=== PATIENT | male | born 1950 | race Caucasian/White ===

== ENCOUNTER → 2023-03-27 08:14 | Outpatient (REF) | payer MEDICARE, OTHER, SELFPAY ==
[2023-03-27 10:43] LABS: ALT (SGPT) 32 U/L (0-50); AST (SGOT) 26 U/L (17-59); Albumin 4.5 g/dl (3.5-5.0); Alkaline Phosphatase 67 U/L (38-126); Blood Urea Nitrogen 13 mg/dl (9-20); Calcium 9.2 mg/dl (8.4-10.2); Carbon Dioxide 31 mmol/L (22-30); Chloride 101 mmol/L (98-107); Glucose 99 mg/dl (70-99); HDL Cholesterol 64 mg/dl; LDL Cholesterol, Calculated 90 mg/dl; Potassium 4.1 mmol/L (3.5-5.1); Sodium 135 mmol/L (135-145); Total Bilirubin 0.9 mg/dl (0.2-1.3); Total Cholesterol 171 mg/dl (50-199); Total Protein 7.4 g/dl (6.3-8.2); Triglyceride 86 mg/dl (10-149); Very Low Density Lipoprotein 17 mg/dl (0-30); eGFR > 60.00
== END ==
LOC: HWLAB 08:14
PROVIDERS: ATTENDING PHYSICIAN Family Medicine
DX: E78.2 Mixed hyperlipidemia (principal)
CPT/HCPCS: 36415; 80053; 80061

== ENCOUNTER → 2023-04-03 08:20 | Outpatient (REF) | payer MEDICARE, OTHER, SELFPAY | LOC: DHCBC HW 08:20 | PROVIDERS: ATTENDING PHYSICIAN Internal Medicine Cardiovascular Disease; FAMILY PHYSICIAN Family Medicine | DX: I35.0 Nonrheumatic aortic (valve) stenosis (principal) | CPT/HCPCS: 93306 ==

== ENCOUNTER → 2023-12-10 11:15 | Outpatient (REF) | payer MEDICARE, OTHER, SELFPAY | LOC: HWRCS 11:15 | PROVIDERS: ATTENDING PHYSICIAN Nurse Practitioner; FAMILY PHYSICIAN Family Medicine | DX: I35.0 Nonrheumatic aortic (valve) stenosis (principal) | CPT/HCPCS: 93306 ==

== ENCOUNTER → 2023-12-13 09:59 | Outpatient (REF) | payer MEDICARE, OTHER, SELFPAY ==
[2023-12-13 12:18] LABS: % Basophils 1.1 % (0-2); % Eosinophils 2.2 % (0-6); % Immature Granulocytes 0.3 % (0-0.5); % Lymphocytes 30.1 % (20.5-51.1); % Monocytes 13.8 % (1.7-9.3); % Neutrophils 52.5 % (42.2-75.2); Absolute Basophils 0.1 10^3/uL (0-0.2); Absolute Eosinophils 0.2 10^3/uL (0-0.7); Absolute Lymphocytes 2.2 10^3/uL (1.2-3.4); Absolute Neutrophils 3.8 10^3/uL (1.4-6.5); Hematocrit 38.7 % (39.0-52.0); Hemoglobin 13.7 g/dL (13.0-18.0); Mean Corp Hgb Conc. 35.4 g/dL (33.0-37.0); Mean Corpuscular Hgb 32.2 pg (27.0-31.0); Mean Corpuscular Volume 90.8 fL (80.0-94.0); Mean Platelet Volume 10.3 fL (7.4-10.4); Nucleated Red Blood Cells % 0 % (-); Platelet Count 266 10^3/uL (130-400); Red Blood Cell Count 4.26 10^6/uL (4.70-6.10); Red Cell Dist. Width 12.2 % (11.5-14.5); White Blood Cell Count 7.3 10^3/uL (4.8-10.8)
[2023-12-13 12:29] LABS: ALT (SGPT) 31 U/L (0-50); AST (SGOT) 26 U/L (17-59); Albumin 4.8 g/dl (3.5-5.0); Alkaline Phosphatase 48 U/L (38-126); Blood Urea Nitrogen 15 mg/dl (9-20); Calcium 9.3 mg/dl (8.4-10.2); Carbon Dioxide 25 mmol/L (22-30); Chloride 96 mmol/L (98-107); Glucose 94 mg/dl (70-99); Potassium 4.4 mmol/L (3.5-5.1); Sodium 134 mmol/L (135-145); Total Bilirubin 0.9 mg/dl (0.2-1.3); Total Protein 7.5 g/dl (6.3-8.2); eGFR > 60.00
== END ==
LOC: HWLAB 09:59
PROVIDERS: ATTENDING PHYSICIAN Student in an Organized Health Care Education/Training Program; FAMILY PHYSICIAN Family Medicine
DX: I35.0 Nonrheumatic aortic (valve) stenosis (principal)
CPT/HCPCS: 36415; 80053; 85025

== ENCOUNTER 2023-12-23 06:29 | Day surgery (SDC) | payer MEDICARE, OTHER, SELFPAY ==
[2023-12-23] VITALS (19 sets, daily range): BP systolic 104–161; BP diastolic 60–82; BMI 25.5
--- NOTE | 2023-12-23 08:42 | ITS.CL.CATH ---
Anesthesiology Physician Assistant - Catheterization
Cardiac Catheterization
Procedure Report:
CARDIAC CATHETERIZATION REPORT
Date of Procedure: 12/23/2023
Referring: Leo Raman M.D.
Indication: Severe aortic valve stenosis.
PROCEDURE:
1. Right heart catheterization.
2. Coronary angiography.
3. Successful IFR of the mid LAD.
ACCESS:
6 Slovenian right radial artery.
5 Slovenian right antecubital vein.
CATHETERS:
1. 5 Slovenian balloon wedge.
2. 5 Slovenian JR4.
3. 5 Slovenian JL 3.5.
4. 6 Slovenian EBU 3.5 guiding catheter.
HEMODYNAMIC DATA
Weight (kg): 67.3
AO (s/d/x mmHg): 112/65/85
LV (s/x mmHg): Not obtained.
PCWP (a/v/x mmHg):
PA (s/d/x mmHg):
RV (s/x mmHg): 23/6
RA (a/v/x mmHg):
SVC SvO2 (%): 73.9
PA SvO2 (%): 77.7
SaO2 (%): 95.8
Hbg (g/dL): 14.1
CO (L/min): 5.95
CI (L/min/m2): 3.45
TPG (mmHg): 3
PVR (Butcher Units): 0.5
SVR (dynes*seconds*cm^-5): 1049
AVO2 Diff (Volume %): 4.08
AV gradient (x, mmHg): Not obtained.
AV area (cm2): Not obtained.
LEFT VENTRICULOGRAPHY: Not performed.
CORONARY ANGIOGRAPHY
Dominance: Left.
Left Main: Large size, bifurcating vessel. There is no coronary artery disease.
LAD: Large size vessel giving rise to 1 significant diagonal. The vessel is densely calcified in its proximal and midportion. There is a 70% lesion in the mid LAD.
Ramus: Congenitally absent.
Circumflex: Large size, dominant vessel giving rise to 1 obtuse marginal. The obtuse marginal subsequently bifurcates into 2 daughter branches supplying the entire lateral and inferolateral wall. There is a 50% lesion in the midportion of the
lower branch of OM1. There is a 70% lesion in the proximal portion of the LPDA.
RCA: Small size, nondominant vessel.
INTERVENTIONS
1. Successful IFR of the 70% mid LAD lesion, demonstrating occlusive disease (IFR = 0.78).
Narrative:
The decision was made to perform physiologic testing. The diagnostic catheter was removed over a wire and exchanged for a(n) 6 Slovenian EBU 3.5 guiding catheter. The guiding catheter was advanced into the ascending aorta and seated in the left main
coronary artery. Additional heparin was given to obtain an ACT greater than 250 seconds. An iFR wire was zeroed outside of the body, then inserted into the guiding sheath. The wire was advanced and the transducer was normalized just outside of the
guiding catheter tip. The wire was advanced into the distal LAD, beyond the 70% mid LAD lesion. Three iFR measurements were taken. The lesion was determined to be occlusive (0.78).
Closure Device: Vascular band for the right radial artery, manual pressure for the right antecubital vein.
Radiation dose (mGy): 312.32
DAP (cm2.Gy): 25.2391
Fluoroscopy time (minutes): 5.3
Sedation time (minutes): 18
CONCLUSIONS:
1. Left dominant circulation with a 70% lesion in the proximal portion of the LPDA, a 50% lesion in the midportion of the lower branch of OM1 and an occlusive 70% lesion in the mid LAD (IFR = 0.78).
2. Severe/critical aortic valve stenosis by echocardiography (mean gradient = 71 mmHg).
3. Normal filling pressures (PCWP = 15 mmHg at 67.3 kg).
RECOMMENDATIONS:
1. Expectant management after cardiac catheterization via right radial/antecubital approach.
2. Limited weight bearing on the right wrist for one week.
3. Aggressive primary prevention with increase of atorvastatin to 40 mg daily. Goal LDL <55.
4. Referral to CT surgery for consideration of concomitant bypass and surgical aortic valve replacement versus PCI and TAVR.
Copy to: Leo Raman M.D.
Matt Thomas DO, FACC, FACP
[2023-12-23] MEDS: NSS 1000 IV (09:08)
--- NOTE | 2023-12-23 09:23 | PTCARENOTE ---
Dr Thomas at pt bedside speaking to pt and pt's .
--- NOTE | 2023-12-23 10:40 | PTCARENOTE ---
Raffi MUKHERJEE at pt bedside speaking to pt and pt's .
[2023-12-23 15:38] LABS: ACT-LR - POC > 397 Seconds (116-155)
== END 2023-12-23 13:08 | disposition home or self-care (01) ==
LOC: CATH 06:29
PROVIDERS: ATTENDING PHYSICIAN Internal Medicine Cardiovascular Disease; CONSULT PHYSICIAN Thoracic Surgery (Cardiothoracic Vascular Surgery); FAMILY PHYSICIAN Family Medicine; OTHER PHYSICIAN Student in an Organized Health Care Education/Training Program
DX: I35.0 Nonrheumatic aortic (valve) stenosis (principal); I25.10 Atherosclerotic heart disease of native coronary artery without angina pectoris; Z79.82 Long term (current) use of aspirin; Z79.899 Other long term (current) drug therapy
CPT/HCPCS: 93799; 85347; 93456; C1769; C1894; Q9967

== ENCOUNTER → 2024-01-07 09:18 | Outpatient (REF) | payer MEDICARE, OTHER, SELFPAY | LOC: RAD 09:18 | PROVIDERS: ATTENDING PHYSICIAN Thoracic Surgery (Cardiothoracic Vascular Surgery); FAMILY PHYSICIAN Family Medicine | DX: I25.10 Atherosclerotic heart disease of native coronary artery without angina pectoris (principal); I35.0 Nonrheumatic aortic (valve) stenosis; Z01.818 Encounter for other preprocedural examination | CPT/HCPCS: 75572; Q9967 ==

== ENCOUNTER 2024-01-22 04:49 | Inpatient (IN) | payer MEDICARE, OTHER, SELFPAY ==
[2024-01-06 08:28] VITALS: BMI 26.0
[2024-01-06 09:05] LABS: % Basophils 0.3 % (0-2); % Immature Granulocytes 0.3 % (0-0.5); % Lymphocytes 16.1 % (20.5-51.1); % Monocytes 4.7 % (1.7-9.3); % Neutrophils 78.6 % (42.2-75.2); Absolute Lymphocytes 1.9 10^3/uL (1.2-3.4); Absolute Monocytes 0.6 10^3/uL (0.1-0.6); Absolute Neutrophils 9.3 10^3/uL (1.4-6.5); Hemoglobin 14.5 g/dL (13.0-18.0); Mean Corp Hgb Conc. 34.5 g/dL (33.0-37.0); Mean Corpuscular Hgb 32.4 pg (27.0-31.0); Mean Corpuscular Volume 93.8 fL (80.0-94.0); Mean Platelet Volume 10.4 fL (7.4-10.4); Nucleated Red Blood Cells % 0 % (-); Platelet Count 273 10^3/uL (130-400); Red Blood Cell Count 4.48 10^6/uL (4.70-6.10); Red Cell Dist. Width 11.9 % (11.5-14.5); White Blood Cell Count 11.8 10^3/uL (4.8-10.8)
[2024-01-06 09:15] LABS: INR 0.92; PT 12.7 Sec (11.4-14.6)
[2024-01-06 09:16] LABS: APTT 29.9 Sec (23.4-35.0)
[2024-01-06 09:16] LABS: Urine Albumin Negative (Neg - Trace); Urine Bilirubin Negative (Negative); Urine Glucose Negative (Negative); Urine Ketone Negative (Negative); Urine Leukocyte Negative (Negative); Urine Nitrite Negative (Negative); Urine Occult Blood Negative (Negative); Urine Specific Gravity 1.015 (<1.030); Urine Urobilinogen Negative (Neg - 1+)
[2024-01-06 09:17] LABS: Urine Character Clear (Clear); Urine Color Yellow
--- NOTE | 2024-01-06 09:40 | CM ---
Met with and Mrs. Hoang in [facility]. He states prior to admission he resides with his spouse in an in-law suite attached to their sons home. He states he has one step to enter. He states prior to admission he was independent with ambulation and
adls. He states he carrasco not have any DME in the home. He states he has a prescription plan ans uses [facility]. His spouse states she will be home to assist in his care at home if needed. The discharge plan is to return home with his spouse
and a home visit by the Transitional Care Nurse when medically stable.
We reviewed pre-op and post-op routines. We reviewed the shower instructions. He has the soap, written instructions and the Cardiothoracic Surgery Educational Booklet. We also reviewed restrictions including sternal precautions and driving
restrictions. We discussed a home visit by the Transitional Care Nurse. He is agreeable to a home visit. The plan is for CABG/AVR on Monday, January 22, 2024.
[2024-01-06 10:04] LABS: ALT (SGPT) 41 U/L (0-50); AST (SGOT) 28 U/L (17-59); Albumin 4.8 g/dl (3.5-5.0); Alkaline Phosphatase 67 U/L (38-126); Blood Urea Nitrogen 15 mg/dl (9-20); Calcium 9.3 mg/dl (8.4-10.2); Carbon Dioxide 28 mmol/L (22-30); Chloride 95 mmol/L (98-107); Direct Bilirubin 0.2 mg/dl (0.0-0.4); Estimated Creatinine Clearance 95 ml/min; Glucose 108 mg/dl (70-99); Potassium 4.3 mmol/L (3.5-5.1); Sodium 138 mmol/L (135-145); Total Bilirubin 0.7 mg/dl (0.2-1.3); Total Protein 7.9 g/dl (6.3-8.2); eGFR > 60.00
[2024-01-06 11:17] LABS: Glycohemoglobin (HgbA1c) 5.3 % (4.0-5.6)
[2024-01-22] VITALS (11 sets, daily range): BP systolic 92–169; BP diastolic 60–83; BMI 25.0
[2024-01-22] MEDS: BACTROBAN 2% OINTMENT 1 APPLIC NASAL ×2 (05:22→19:27)
[2024-01-22] MEDS: PROTONIX 40 MG PO (05:22)
[2024-01-22] MEDS: LOPRESSOR 25 MG PO (05:22)
[2024-01-22] MEDS: MAGNESIUM OXIDE 500 MG PO (05:22)
--- NOTE | 2024-01-22 05:40 | PTCARENOTE ---
pt admitted into room 2263. VS and weight obtained. pt confirms 2 showers @ home and NPO since midnight. admission questions and med rec completed. clip prep and CHG cloths done. pre-op meds given. and son at bedside.
--- NOTE | 2024-01-22 06:07 | W.CVOR.SURPR ---
CVOR Surgeon Immed Pre Op
-
I have examined this patient prior to performance of the scheduled procedure.
The patient's condition is unchanged from the time of the dictated/written History and
Physical and the patient is able to undergo the scheduled procedure.
[2024-01-22 07:10] LABS: ACT+ - POC 96 Seconds (82-134)
[2024-01-22 07:46] LABS: Urine Albumin Negative (Neg - Trace); Urine Bilirubin Negative (Negative); Urine Character Clear (Clear); Urine Color Yellow; Urine Glucose Negative (Negative); Urine Ketone Negative (Negative); Urine Leukocyte Negative (Negative); Urine Nitrite Negative (Negative); Urine Occult Blood Trace (Negative); Urine Specific Gravity 1.005 (<1.030); Urine Urobilinogen Negative (Neg - 1+)
[2024-01-22 08:44] LABS: Urine Red Blood Cell 0-2 /HPF (0-2)
[2024-01-22 09:14] LABS: ACT+ - POC 649 Seconds (82-134)
[2024-01-22 09:42] LABS: B.E. - POC -0.2 mmol/L; Glucose - POC 130 mg/dl (70-99); HCO3 - POC 25 mmol/L (21-28); Hematocrit - POC 36 % PCV (42-52); Hemodilution- POC Yes; Hemoglobin Calculated - POC 12.2; Ionized Calcium - POC 1.13 mmol/L (1.15-1.33); O2 Saturation %Calculated-POC 99.9 % (94-98); PCO2 - POC 41 mmHg (35-48); PO2 - POC 328 mmHg (83-108); POC Comment PRE; Potassium - POC 3.5 mmol/L (3.5-5.1); Sodium - POC 138 mmol/L (136-145); Specimen Type - POC Arterial; pH - POC 7.39 (7.35-7.45)
[2024-01-22 09:59] LABS: ACT+ - POC 889 Seconds (82-134)
[2024-01-22 10:16] LABS: B.E. - POC 3.1 mmol/L; Glucose - POC 85 mg/dl (70-99); HCO3 - POC 28 mmol/L (21-28); Hematocrit - POC 26 % PCV (42-52); Hemodilution- POC Yes; Hemoglobin Calculated - POC 8.9; Ionized Calcium - POC 1.01 mmol/L (1.15-1.33); PCO2 - POC 43 mmHg (35-48); PO2 - POC 391 mmHg (83-108); POC Comment CPB; Potassium - POC 3.7 mmol/L (3.5-5.1); Sodium - POC 137 mmol/L (136-145); Specimen Type - POC Arterial; pH - POC 7.42 (7.35-7.45)
[2024-01-22 10:27] LABS: ACT+ - POC 619 Seconds (82-134)
[2024-01-22 10:41] LABS: B.E. - POC 2.9 mmol/L; Glucose - POC 107 mg/dl (70-99); HCO3 - POC 26 mmol/L (21-28); Hematocrit - POC 31 % PCV (42-52); Hemodilution- POC Yes; Hemoglobin Calculated - POC 10.4; Ionized Calcium - POC 1.02 mmol/L (1.15-1.33); O2 Saturation %Calculated-POC 99.8 % (94-98); PCO2 - POC 34 mmHg (35-48); PO2 - POC 224 mmHg (83-108); POC Comment CPB; Potassium - POC 3.7 mmol/L (3.5-5.1); Sodium - POC 138 mmol/L (136-145); Specimen Type - POC Arterial; pH - POC 7.49 (7.35-7.45)
[2024-01-22 10:55] LABS: ACT+ - POC 701 Seconds (82-134)
[2024-01-22 11:13] LABS: B.E. - POC 1.1 mmol/L; Glucose - POC 113 mg/dl (70-99); HCO3 - POC 25 mmol/L (21-28); Hematocrit - POC 28 % PCV (42-52); Hemodilution- POC Yes; Hemoglobin Calculated - POC 9.4; Ionized Calcium - POC 0.94 mmol/L (1.15-1.33); O2 Saturation %Calculated-POC 99.9 % (94-98); PCO2 - POC 36 mmHg (35-48); PO2 - POC 282 mmHg (83-108); POC Comment CPB; Potassium - POC 5.4 mmol/L (3.5-5.1); Sodium - POC 137 mmol/L (136-145); Specimen Type - POC Arterial; pH - POC 7.45 (7.35-7.45)
[2024-01-22 11:23] LABS: ACT+ - POC 502 Seconds (82-134)
[2024-01-22 11:38] LABS: B.E. - POC 1.6 mmol/L; Glucose - POC 140 mg/dl (70-99); HCO3 - POC 25 mmol/L (21-28); Hematocrit - POC 29 % PCV (42-52); Hemodilution- POC Yes; Ionized Calcium - POC 1.02 mmol/L (1.15-1.33); O2 Saturation %Calculated-POC 99.9 % (94-98); PCO2 - POC 35 mmHg (35-48); PO2 - POC 265 mmHg (83-108); POC Comment CPB; Potassium - POC 3.7 mmol/L (3.5-5.1); Sodium - POC 138 mmol/L (136-145); Specimen Type - POC Arterial; pH - POC 7.46 (7.35-7.45)
[2024-01-22 11:45] LABS: ACT+ - POC 455 Seconds (82-134)
[2024-01-22 11:57] LABS: B.E. - POC 0.7 mmol/L; Glucose - POC 151 mg/dl (70-99); HCO3 - POC 25 mmol/L (21-28); Hematocrit - POC 28 % PCV (42-52); Hemodilution- POC Yes; Hemoglobin Calculated - POC 9.6; Ionized Calcium - POC 1.02 mmol/L (1.15-1.33); O2 Saturation %Calculated-POC 99.8 % (94-98); PCO2 - POC 36 mmHg (35-48); PO2 - POC 203 mmHg (83-108); POC Comment CPB; Potassium - POC 3.6 mmol/L (3.5-5.1); Sodium - POC 138 mmol/L (136-145); Specimen Type - POC Arterial; pH - POC 7.45 (7.35-7.45)
[2024-01-22 12:50] LABS: B.E. - POC -1.5 mmol/L; Glucose - POC 124 mg/dl (70-99); HCO3 - POC 23 mmol/L (21-28); Hematocrit - POC 28 % PCV (42-52); Hemodilution- POC Yes; Hemoglobin Calculated - POC 9.5; Ionized Calcium - POC 1.02 mmol/L (1.15-1.33); PCO2 - POC 38 mmHg (35-48); PO2 - POC 372 mmHg (83-108); POC Comment WARM; Potassium - POC 3.4 mmol/L (3.5-5.1); Sodium - POC 139 mmol/L (136-145); Specimen Type - POC Arterial
[2024-01-22 12:55] LABS: ACT+ - POC 109 Seconds (82-134)
[2024-01-22 13:18] LABS: ACT+ - POC 140 Seconds (82-134)
[2024-01-22 13:30] LABS: ACT+ - POC 129 Seconds (82-134)
--- NOTE | 2024-01-22 13:47 | W.IMMPOSTOP ---
Addendum entered and electronically signed by Celestino Espinoza MD 01/22/24 15:01:
Dictated
Original Note:
Surgical Immed Post Op Note
-
CARDIAC SURGERY OPERATIVE NOTE:
Preoperative Dx:
Severe aortic stenosis (P/M: 127/76, CHRIS 0.9)
MVCAD (70% mid LAD, 50% hazy mid OM1 inferior branch, 70% prox LPDA)
Postoperative Dx:
Same
Procedures:
1) Median sternotomy
2) Takedown of SCAR (narrow pedicle)
3) Endoscopic harvest/prep of RLE GSV
4) CABG x 3 (SCAR to LAD, GSV to OM1 inferior branch), GSV to LPDA)
5) AVR (#25mm Inspiris)
Surgeon:
Celestino Espinoza M.D.
Assistants:
Adrienne Gallegos PKarlaA.-CKarla; instructional assistant
Parvez JonesAKarla-Pramod; endoscopic harvest/prep of RLE GSV
Anesthesia:
Tung Husain M.D.
Perfusion:
Pramod DuronCKarlaP.; XC: 168min, CPB: 187min
Findings:
SCAR was very healthy appearing vessel w/ estimated luminal diameter 2.5mm, very brisk blood flow
GSV was healthy appearing conduit w/ ELD 3.5mm
LAD was visible on the epicardial surface, healthy lauren at distal midpoint anastomosis; ELD 2.5mm
OM1 (inferior branch) was visible on the epicardial surface, healthy lauren at anastomosis; ELD 3.5mm
LPDA was visible on the epicardial surface, healthy lauren at anastomosis; ELD 3.0mm
AV was trileaflet w/ very heavy calcifications on all leaflets w/ circumferential annular extension (most pronounced along RCC). There was no significant subvalvular calcifications. Good LM and RM coronary heights.
Excellent flow in all grafts on transit-time U/S flow probe assessment
Minor post-CPB coagulopathy w/ incomplete correction of ACT w/ protamine and paradoxical response w/ additional protamine. Significant improvement w/ topical hemostatic agents and 1pk PLTs
SANDRA: LVEF 65% w/o RWMA, significant LVH, RV normal. Trace MR, mild TR. Well-seated AVR w/o AI or PVL. P/M 22/12 at CI of 2.8. Mild ascending aortic dilation to 3.7mm
Baseline rhythm was NSR in 40s under GA, completion rhythm is continued NSR in 40s - currently V-pacing at 80bpm for improved hemodynamics
Complications:
None
Transfusions:
1pk PLTs
Implants:
[employer], INSPIRIS RESILIA, 25mm, Model 73833Y, SN [id number]
Epicardial V-wires x 2
CT x 4 (B/L pleural, inferior mediastinal, superior mediastinal)
Sternal wires x 8
Condition:
80 V-paced (isoelectric NSR in 40s under); 97/52. 31/21. CVP 12. CO/CI: 3.4/2.0
GTTS: levophed 12, precedex 0.5, insulin OFF
Stable/guarded to CVICU
[2024-01-22 13:48] LABS: B.E. - POC 1.6 mmol/L; Glucose - POC 84 mg/dl (70-99); HCO3 - POC 26 mmol/L (21-28); Hematocrit - POC 28 % PCV (42-52); Hemodilution- POC Yes; Hemoglobin Calculated - POC 9.5; PCO2 - POC 41 mmHg (35-48); PO2 - POC 480 mmHg (83-108); POC Comment POST; Sodium - POC 142 mmol/L (136-145); Specimen Type - POC Arterial; pH - POC 7.41 (7.35-7.45)
--- NOTE | 2024-01-22 14:19 | CON.INTV ---
Consultation
Consultation Request
Date/Time Consultation Requested: 01/22/2024
Date/Time Consultation Performed: 01/22/2024
Requesting Provider: Dr. Espinoza
Performing Provider: Dr. Mitch Skinner
Reason for Consultation: Status post coronary artery bypass/AVR
Medical History
-
History of Present Illness:
73-year-old man with history of aortic valve stenosis, coronary artery disease with multivessel coronary involvement,. Electively admitted 01/22/2024 for revascularization and aortic valve replacement. Surgery underwent by Dr. Espinoza without
significant complications.
Patient currently in the critical care unit, intubated on mechanical ventilation.
Chest tube in place without significant output.
Appears comfortable on current mechanical ventilation settings
Past Medical History
Past Medical History: Other (See assessment and plan)
Social History
Tobacco: Non-smoker (Never smoker)
Alcohol: Occasional (4 to 6 glasses a week of wine)
Drug: None
Living: With Family
Employment: Employed (Part-time [employer])
Family History
Family History: Unable to Obtain
Allergies / Home Medications
Allergies
Allergy/AdvReac Type Severity Reaction Status Date / Time
No Known Allergies Allergy Verified 01/03/24 09:51
Home Medications
�Medication �Instructions �Recorded �Confirmed �Last Taken �Type
amlodipine 10 mg tablet 10 mg PO DAILY Blood pressure 07/18/21 01/22/24 01/19/24 08:00 History
losartan 50 mg tablet 50 mg PO DAILY #30 tabs 07/20/21 01/22/24 01/19/24 08:00 Rx
pantoprazole 40 mg tablet,delayed 40 mg PO DAILY #30 tabs 07/20/21 01/22/24 01/21/24 08:00 Rx
release
aspirin 81 mg tablet,delayed 81 mg PO DAILY 12/23/23 01/22/24 01/21/24 08:00 History
release
atorvastatin 40 mg tablet 40 mg PO DAILY #90 tabs 12/23/23 01/22/24 01/21/24 08:00 Rx
fiber 1 tab PO HS 12/23/23 01/22/24 01/14/24 08:00 History
vitamin B comp with C no.4 150 mg 1 tab PO DAILY 12/23/23 01/22/24 01/14/24 08:00 History
tablet
acetaminophen 325 mg capsule 650 mg PO Q6H PRN pain 01/03/24 01/03/24 Unknown History
amoxicillin 500 mg capsule 500 mg PO TID 01/03/24 01/22/24 01/16/24 08:00 History
methylprednisolone 4 mg tablet 4 mg PO DAILY 01/03/24 01/22/24 01/16/24 08:00 History
Review of Systems
-
Unable to Obtain full review of systems at this time due to: Patient Intubation
Vitals / Labs / Diagnostic Testing
Vital Signs
Temp Pulse Resp BP Pulse Ox
97.7 F 70 18 162/83 99
01/22/24 05:08 01/22/24 05:22 01/22/24 05:08 01/22/24 05:22 01/22/24 05:08
Diagnostic Testing:
Physical Exam
-
HEENT: Normocephalic
Cardiovascular: S1/S2
Respiratory: Clear, Non-Labored Respirations and Other (Chest tube in place: No air leak or excessive drainage)
GI: Soft and Non Distended
Neurology: Other (Sedated, mechanical ventilation)
Skin: Warm
General: Comfortable
Assessment
-
73-year-old man with history of aortic stenosis, coronary artery disease with multiple vessel involvement. Admitted for aortic valve replacement and coronary artery bypass. Consulted for postoperative critical care management.
Status post coronary artery bypass/aortic valve replacement 01/22/2024-Dr. Espinoza
Postoperative mechanical ventilation
Postoperative anemia
Conditions present prior admission:
Hypertension
Severe aortic stenosis
History of bleeding ulcer 2016
Assessment and plan:
His doing well postop-currently on mechanical ventilation and appears comfortable.
ABG reviewed:Adequate oxygenation and ventilation.
Continue SIMV mode with no change
Spontaneous breathing trial per protocol once sedation wears off.
Postoperative blood loss Anemia noted-getting transfused
Follow chest tube output. Currently not excessive.
Follow H&H serially
Hemodynamics -currently on Levophed.
Normal renal function
Adequate urinary output
PA catheter and arterial line in place will follow hemodynamics and adjust vasopressors as necessary
Chest tube with no excessive drainage-no air leak.
Chest x-ray reviewed: With no pneumothorax or fluid collections.
Remain nothing by mouth
Head of the bed elevation
Glycemic control per protocol
DVT prophylaxis when safe from the surgical perspective.
Critical care statement: A total of 32 minutes of critical care time was provided for this patient today. This includes management of unstable vital signs, evaluation of the patient at bedside, reviewing the patient's pertinent medical records
including ventilator settings, arterial blood gases, radiographs, microbiology, laboratory evaluations and discussion with primary team, critical care nursing, and respiratory therapy.
[2024-01-22 14:23] LABS: Glucose - Point of Care 112 mg/dl (70-99)
[2024-01-22] MEDS: LR 250 ML IV ×3 (14:28→21:00)
[2024-01-22] MEDS: NSS 500 IV (14:29)
[2024-01-22 14:36] LABS: Hematocrit 22.7 % (39.0-52.0); Hemoglobin 7.9 g/dL (13.0-18.0); Platelet Count 166 10^3/uL (130-400)
[2024-01-22 14:37] LABS: Mixed Venous O2 Saturation 58.3 %
[2024-01-22 14:39] LABS: B.E. -0.8 mmol/L; HCO3 24.3 mmol/L (21-28); Ionized Calcium 1.13 mMOL/L (1.15-1.33); O2 Saturation % 99.8 % (94-98); PCO2 41 mmHg (35-48); PO2 185 mmHg (83-108); Potassium 3.2 mMOL/L (3.5-5.1); Sodium 136 mMOL/L (136-145); pH 7.38 (7.35-7.45)
[2024-01-22 14:50] LABS: INR 1.58; PT 19.4 Sec (11.4-14.6)
--- NOTE | 2024-01-22 14:50 | PTCARENOTE ---
Pt out from CVOR ~1415. Pt to room 2263. Pt intubated and sedated. Precedex infusing upon arrival. Pt 100% v-paced on the tele monitor. HR 80. Temporary epicardial V-wire set to VVI 12/01/15. Palpable pulses throughout. No edema. BPs
100s-110s/50-60s. Levo infusing as ordered. CVP ~10. PAP 30s/teens. CO: 3.41. CI: 1.99. ETT #8.0, 23 cm @ right lip. See worklist for vent settings. POX 100%. Mouth care completed. Lung sounds audible. Mediastinal CTx2 and R/L pleural CT to -20
suction, no airleaks or tidaling noted at this time. CT output as documented in the worklist. Abdomen soft. Hypoactive BS. Davey catheter C/D/I and draining clear/yellow urine. Stat lock applied. Davey care completed. Left radial a-line C/D/I. Right
IJ cordis w/ swan @47 cm C/D/I. All lines leveled, zeroed, and flushed. 250 LR bolus per CTPA for low BP. Glycemic protocol followed. Labs drawn and sent. Per CTPA okay to wait on EKG because pt is 100% v-paced at this time. 1 unit PRBCs initiated.
See worklist for full nursing assessment and interventions.
[2024-01-22 14:51] LABS: APTT 40.6 Sec (23.4-35.0)
[2024-01-22] MEDS: CALCIUM CHLORIDE 10% SYRINGE 500 MG IV (14:54)
[2024-01-22] MEDS: KCL 50 IV ×2 (14:55→16:29)
[2024-01-22] MEDS: LIPITOR PO (14:57)
[2024-01-22] MEDS: ANCEF 10 IV ×2 (15:03)
[2024-01-22] MEDS: TYLENOL PO ×2 (15:04→21:08)
[2024-01-22 15:06] LABS: Blood Urea Nitrogen 20 mg/dl (9-20); Estimated Creatinine Clearance 95 ml/min; Glucose 104 mg/dl (70-99)
[2024-01-22 15:34] LABS: Glucose - Point of Care 113 mg/dl (70-99)
--- NOTE | 2024-01-22 15:37 | W.PN.CD ---
Addendum entered and electronically signed by Matt Thomas DO 01/22/24 16:55:
Attestation: I have seen and examined the patient. I can confirm Ms. Boswell's findings and I agree with her assessment and plan as documented.
73-year-old gentleman with coronary artery disease and severe aortic valve stenosis admitted for elective AVR CABG.
The patient underwent CABG x 3 (TOM to LAD, SVG to OM1, SVG to L PDA) and SAVR (#25 Lutz Inspiris bioprosthetic AVR).
On exam, the patient is intubated and sedated. Precedex is being weaned and the patient has been set to CPAP.
He remains on norepinephrine 8 mcg/kg/min. Blood pressure is stable.
Anticipate routine postoperative management.
Wean vent to extubate, likely within the hour.
Wean pressors/inotropes for MAP >65 mmHg, cardiac index >1.8 L/min/m�.
Pain/chest tube management per CT surgery.
We will readd home medications as hemodynamics will allow.
Original Note:
Today's Communication / Plan
-
Follow telemetry
Postoperative management per CT surgery
Impression / Plan
-
73M with hypertension, prior bleeding ulcer (2015), dyslipidemia, coronary artery disease, and aortic stenosis presents for AVR/CABG
Primary medical record specialist: Formerly Dr. Spencer, transitioning to Dr. Alonzo
Coronary artery disease status post CABG x 3 (Whitney�LAD, GSV�OM1 inferior branch, GSV�LPDA)
Severe aortic stenosis status post aortic valve replacement (#25 mm Inspiris)
-Stable on Levophed
-Post SANDRA LVEF 65% without RWMA, no AI or PVL
-EKG with sinus bradycardia nonspecific T wave abnormalities
Postoperative anemia, expected, status post 1 unit PRBC, follow
Hypertension, follow with recovery
Dyslipidemia, continue high intensity statin with goal LDL <70, last LDL 90 (pre-statin)
PUD with prior bleeding ulcer, requiring admission and inpatient transfusions, 10/2015
Physical Exam
Vital Signs/Labs
Vital Signs
Temp Pulse Resp BP Pulse Ox
96.7 F L 80 14 162/83 100
01/22/24 15:00 01/22/24 15:00 01/22/24 15:00 01/22/24 05:22 01/22/24 15:00
01/21/24 01/22/24 01/23/24
06:59 06:59 06:59
Actual Weight 65.9 kg 65.9 kg
01/22/24 14:22
PT 19.4 Sec (11.4-14.6) H 01/22/24 14:22
INR 1.58 01/22/24 14:22
APTT 40.6 Sec (23.4-35.0) H 01/22/24 14:22
Magnesium 3.0 mg/dl (1.6-2.3) H 01/22/24 14:22
Physical Exam
Constitutional: No acute distress and Comfortable
EENT: Anicteric and Moist mucous membranes
Cardiovascular: Rhythm & rate is regular, S1S2 is normal and Murmur/rub/gallop absent
Respiratory: Lungs clear to auscul. and Other (ETT to MV)
GI: Soft, Distention absent, Flat, Non tender and Normal bowel sounds
Other: Skin (warm and dry)
Data Reviewed
-
Date of Service: January 22, 2024
EKG: Report Reviewed by me
Labs: Labs Reviewed by me
Old Records: Reviewed
--- NOTE | 2024-01-22 15:50 | PTCARENOTE ---
CTPA at the bedside. Pacer paused. Pt SR in the 50s. EKG obtained. Pacer tested at beside. New settings VVI 40/3/4.
--- NOTE | 2024-01-22 15:54 | CM ---
pt in OR , cm to follow
[2024-01-22] MEDS: LEVOPHED 250 IV (16:16)
[2024-01-22 16:32] LABS: Glucose - Point of Care 114 mg/dl (70-99)
[2024-01-22] MEDS: NEURONTIN PO (16:39)
[2024-01-22] MEDS: PACERONE PO ×2 (16:39→21:07)
[2024-01-22] MEDS: OFIRMEV 100 IV (16:55)
[2024-01-22 17:06] LABS: Glucose - Point of Care 120 mg/dl (70-99)
[2024-01-22 17:32] LABS: B.E. -1.1 mmol/L; HCO3 23.5 mmol/L (21-28); Ionized Calcium 1.16 mMOL/L (1.15-1.33); O2 Saturation % 99.5 % (94-98); PCO2 38 mmHg (35-48); PO2 161 mmHg (83-108); Potassium 4.9 mMOL/L (3.5-5.1)
--- NOTE | 2024-01-22 17:51 | RESPNOTE ---
17:50 extubated patient to 6L nasal cannula, will monitor.
--- NOTE | 2024-01-22 17:53 | PTCARENOTE ---
Pt placed on CPAP ~1643. ABG drawn and sent around 1715. ABG resulted and per CTPA okay to extubate. Pt extubated to 6 L NC by respiratory. POX 100%. IS 1000. Pt AAOx3. Following commands appropriately. VSS.
[2024-01-22 18:00] LABS: Glucose - Point of Care 82 mg/dl (70-99)
[2024-01-22] MEDS: ANCEF 5 IV (18:05)
[2024-01-22] MEDS: DILAUDID 0.25 MG IV (18:05)
[2024-01-22] MEDS: ZOFRAN 4 MG IV (18:16)
[2024-01-22 18:23] LABS: Hematocrit 26.1 % (39.0-52.0); Hemoglobin 9.4 g/dL (13.0-18.0); Platelet Count 164 10^3/uL (130-400)
[2024-01-22] MEDS: CALCIUM GLUCONATE 100 IV (18:27)
--- NOTE | 2024-01-22 18:39 | PTCARENOTE ---
Pt reassessed. Pt is AAOx3. Sleepy. Pt is SR on the tele monitor. HR 50-60s. Temporary epicardial v-wires intact. Settings unchanged from previous. BP 100-110's/50s. Levo infusing per protocol. CVP ~8. PAPs 20s/teens. CO: 3.44. CI: 2.01. Pt on 6 L
NC. POX 100%. Mediastinal CTx2 and R/L pleural CT to -20 suction, no airleak/tidaling noticed at this time, and output WNL. Left radial arterial line and Right IJ cordis w/ SWAN C/D/I. All lines leveled, zeroed, and flushed. Pt c/o pain and nausea -
see MAR. Glycemic protocol followed. KCl and iCal replaced. Additional 250 LR bolus administered. 4-hour labs drawn and sent. Interventions as documented in the worklist. Call boucher within reach.
[2024-01-22 19:09] LABS: Glucose - Point of Care 108 mg/dl (70-99)
[2024-01-22] MEDS: SENOKOT-S 1 TABLET PO (19:27)
[2024-01-22] MEDS: LOW STRENGTH ASPIRIN 81 MG PO (19:27)
[2024-01-22 21:00] LABS: Glucose - Point of Care 105 mg/dl (70-99)
[2024-01-22] MEDS: NEURONTIN 100 MG PO (21:07)
--- NOTE | 2024-01-22 22:36 | PTCARENOTE ---
Pt reassessed. Pt is sinus meme to sinus rhythm on the tele monitor. HR 50s-60. BP 110s-120s/50-60s. Levo infusing per protocol. CVP ~4-8. PAPs 20s/10s. CVPA aware of decrease in CVP and PAPs - additional 250 LR given - see MAR. CI: 2.15 CO: 3.67.
A-line and swan C/D/I. All lines leveled, zeroed, and flushed. Pt on 4 L NC. POX 100%. Mediastinal CTx2 and R/L pleural CT assessment unchanged from previous. Davey catheter C/D/I and draining yellow urine >30 ml/hr. Glycemic protocol followed. Pt
tolerating ice chips and sips of water. Pt states he is hungry. VS/I&O's and interventions as documented in the worklist. Pt repositioned in bed. Call boucher within reach.
--- NOTE | 2024-01-22 23:15 | PTCARENOTE ---
assumed care of pt from previous RN. pt drowsy, oriented x4, bedrest s/p CABG/AVR. MAEE. R IJ cordis w/ swan floated to 47cm. L radial a-line. all lines leveled, zeroed, flushed. sinus meme on tele-monitor. temp epicardial v-wires connected to
pulse generator w/ backup settings VVI 40/3/4. POX 100% on 4 L NC. CTx4 (mediastinal x2, R & L pleural) to -20cm wall suction, draining sanguineous drainage. no air leaks noted. abd s/n, hypoactive BS. tolerating PO meds and ice chips. celis
catheter draining richy urine. U/O >0.5ml/kg/h. all surgical sites stable, CDI. PIV intact. see worklist for complete nursing assessment, interventions, VS, and I&Os.
[2024-01-22 23:16] LABS: Glucose - Point of Care 74 mg/dl (70-99)
[2024-01-22] MEDS: FLEXERIL 5 MG PO (23:37)
[2024-01-22] MEDS: TYLENOL 1000 MG PO (23:37)
[2024-01-23] VITALS (29 sets, daily range): BP systolic 85–132; BP diastolic 45–83; PULSE 74; O2SAT 96–97; BMI 26.0
[2024-01-23 00:11] LABS: Glucose - Point of Care 90 mg/dl (70-99)
[2024-01-23 01:11] LABS: Glucose - Point of Care 105 mg/dl (70-99)
[2024-01-23 01:57] LABS: Glucose - Point of Care 121 mg/dl (70-99)
[2024-01-23] MEDS: TORADOL 15 MG IV (01:57)
--- NOTE | 2024-01-23 03:30 | PTCARENOTE ---
assessment remains unchanged. CT drainage WNL. U/O >0.5ml/kg/h.
[2024-01-23] MEDS: ANCEF 5 IV ×2 (03:57→10:24)
[2024-01-23 04:12] LABS: Hematocrit 23.5 % (39.0-52.0); Hemoglobin 8.5 g/dL (13.0-18.0); Mean Corp Hgb Conc. 36.2 g/dL (33.0-37.0); Mean Corpuscular Hgb 33.2 pg (27.0-31.0); Mean Corpuscular Volume 91.8 fL (80.0-94.0); Mean Platelet Volume 10.7 fL (7.4-10.4); Platelet Count 135 10^3/uL (130-400); Red Blood Cell Count 2.56 10^6/uL (4.70-6.10); Red Cell Dist. Width 12.9 % (11.5-14.5); White Blood Cell Count 14.2 10^3/uL (4.8-10.8)
[2024-01-23 04:15] LABS: Ionized Calcium 1.12 mMOL/L (1.15-1.33)
[2024-01-23] MEDS: CALCIUM GLUCONATE 100 IV (04:38)
[2024-01-23 04:57] LABS: Blood Urea Nitrogen 22 mg/dl (9-20); Calcium 7.7 mg/dl (8.4-10.2); Carbon Dioxide 25 mmol/L (22-30); Chloride 107 mmol/L (98-107); Estimated Creatinine Clearance 95 ml/min; Glucose 111 mg/dl (70-99); Magnesium 2.1 mg/dl (1.6-2.3); Potassium 4.2 mmol/L (3.5-5.1); Sodium 137 mmol/L (135-145); eGFR > 60.00
[2024-01-23] MEDS: TYLENOL 1000 MG PO ×3 (05:08→22:13)
[2024-01-23 05:15] LABS: Glucose - Point of Care 113 mg/dl (70-99)
--- NOTE | 2024-01-23 05:51 | W.PN.CT ---
Today's Communication / Plan
-
-pod #1
-no issues overnight
-CI 2.81, CO 4.81. Drips: Insulin, Levo is off at 5am
-CT output: 2 meds 270/460, 2 pleur 170/350 in 12/24 hrs
- delined
-meme postop 40s. No significant meme overnight - high 50s-60s, currently in nsr low 70s. Held am BB - ? resume if BP and hr ok
-d/c insulin
-d/c Davey
-maintain pw (VVI 40 backup), Cordis
-current meds (ASA, Plavix, Lipitor, Amio, Protonix)
-encourage IS, OOB
Assessment / Plan
-
- Severe symptomatic /mv-CAD - s/p AVR (#25mm Inspiris); CABG x 3 (SCAR to LAD, GSV to OM1 inferior branch, GSV to LPDA) on 01/22/24, pod #1
- Intraop SANDRA: LVEF 65% w/o RWMA, significant LVH, RV normal. Trace MR, mild TR. Well-seated AVR w/o AI or PVL. P/M 01/02 at CI of 2.8. Mild ascending aortic dilation to 3.7mm
- Baseline rhythm was NSR in 40s under GA, completion rhythm is continued NSR in 40s - currently V-pacing at 80bpm for improved hemodynamics
- HTN/HLD
- Mild MR/mild TR
- Hx bleeding ulcer 2015
- L rotator cuff repair 2019
- Non-smoker
- Chronic prednisone 4 mg/day
- Acute postop blood loss anemia - s/p 1 pRBC for Hg 7.9
- Acute postop coagulopathy - s/p 1 unit platelets
- Acute postop atelectasis
Discussed patient care with: Nursing and Care Team
Subjective
Procedure
- s/p AVR (#25mm Inspiris); CABG x 3 (SCAR to LAD, GSV to OM1 inferior branch, GSV to LPDA) on 01/22/24
-
Date of Service: January 22, 2024
Objective Data
-
Lab Results
01/22/24 18:15
01/22/24 14:22
PT 19.4 Sec (11.4-14.6) H 01/22/24 14:22
INR 1.58 01/22/24 14:22
APTT 40.6 Sec (23.4-35.0) H 01/22/24 14:22
Vital Signs
Vital Signs
Temp Pulse Resp BP Pulse Ox
99 F 56 12 101/60 100
01/22/24 22:00 01/22/24 23:00 01/22/24 23:00 01/22/24 23:00 01/22/24 23:00
CT Intake/Output/Weight
01/22/24 01/22/24 01/23/24
06:59 18:59 06:59
Intake Total 550.3 / 722.8 172.5 / 722.8
Output Total 720 / 1140 420 / 1140
Balance -169.7 / -417.2 -247.5 / -417.2
SaO2: 100
Physical Exam
-
General: Awake and AOx3
Cardiovascular: Regular rate & rhythm, No Murmurs and No Rub
Respiratory: Decreased Breath Sounds
Sternum: Stable
Incision: Clean, Dry and Intact
Extremities: No Edema (1+DP b/l)
Abdomen: soft, nontender, nondistended, + bowel sounds
Data Reviewed
-
Lab Results: Results Reviewed
Medications: Active Meds Reviewed
Chest X-Ray: Report Reviewed and Image Reviewed
ECG: Report Reviewed and Image Reviewed
[2024-01-23 07:01] LABS: Glucose - Point of Care 94 mg/dl (70-99)
--- NOTE | 2024-01-23 07:27 | W.PN.ANS.POP ---
Anesthesia Post Operative
- Anesthesia Post Op Note
Vital Signs Stable-See Nursing Note: Yes
Airway Patent: Yes
Adequate Pain Control: Yes
Change in Mental Status: No
Current Postoperative Nausea & Vomiting: No
Anesthesia Complications: No
General Anesthetic Recall: No
Unplanned Admission: No
Post Op Hydration Adequate: Yes
[2024-01-23 08:24] LABS: Glucose - Point of Care 88 mg/dl (70-99)
[2024-01-23] MEDS: PROTONIX 40 MG PO (08:39)
[2024-01-23] MEDS: MAGNESIUM OXIDE 500 MG PO ×2 (08:39→20:52)
[2024-01-23] MEDS: LIDOCAINE 4% PATCH 1 PATCH TOPICAL (08:39)
[2024-01-23] MEDS: PLAVIX 75 MG PO (08:40)
[2024-01-23] MEDS: PACERONE 200 MG PO ×3 (08:40→22:13)
[2024-01-23] MEDS: SENOKOT-S 1 TABLET PO (08:40)
[2024-01-23] MEDS: LIPITOR 40 MG PO (08:40)
[2024-01-23] MEDS: LOW STRENGTH ASPIRIN 81 MG PO (08:40)
[2024-01-23] MEDS: NEURONTIN 100 MG PO ×3 (08:40→22:13)
[2024-01-23] MEDS: BACTROBAN 2% OINTMENT 1 APPLIC NASAL ×2 (08:40→20:52)
--- NOTE | 2024-01-23 09:26 | PTCARENOTE ---
assumed care of pt from previous shift RN, sinus rhythm on tele HR 60-70, bp 101/56, + peripheral pulses, no edema, epicardial pacing wire to be insulated. Lungs diminished, pox 100% on RA, coughing and deep breathing encouraged. +bs, tolerating PO
intake, DTV. MSI w antibacterial dressing intact, right leg w rogelio intact. Right IJ cordis w KVo infusing, PIV w insulin infusing per glycemic protocol. CT x4 w red drainage. Plan of care reviewed and questions encouraged.
[2024-01-23] MEDS: LASIX 40 MG IV (10:24)
[2024-01-23 10:31] LABS: Glucose - Point of Care 107 mg/dl (70-99)
[2024-01-23 11:24] LABS: Glucose - Point of Care 120 mg/dl (70-99)
--- NOTE | 2024-01-23 11:33 | PTCARENOTE ---
vss, sinus rhythm maintained on tele, pain well controlled.
[2024-01-23 11:49] LABS: ACT+ - POC > 1003 Seconds (82-134)
--- NOTE | 2024-01-23 11:57 | W.PN.CD ---
Today's Communication / Plan
-
Continue current postoperative management.
Impression / Plan
-
73M with hypertension, prior bleeding ulcer (2016), dyslipidemia, coronary artery disease, and aortic stenosis presents for AVR/CABG
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 Alonzo
Coronary artery disease status post CABG x 3 (Whitney�LAD, GSV�OM1 inferior branch, GSV�LPDA)
Severe aortic stenosis status post aortic valve replacement (#25 mm Inspiris)
-Patient weaned off all of vasopressor support
-Doing well out of bed to chair
-Post SANDRA LVEF 65% without RWMA, no AI or PVL
-EKG with sinus bradycardia nonspecific T wave abnormalities
Postoperative anemia, expected, status post 1 unit PRBC, follow
-Continue to monitor
Hypertension, follow with recovery
-Continue to monitor
Dyslipidemia, continue high intensity statin with goal LDL <70, last LDL 90 (pre-statin)
PUD with prior bleeding ulcer, requiring admission and inpatient transfusions, 10/2015
Subjective:
Feeling reasonable, thinks he will feel better once 'I get my tubes out'
Physical Exam
Vital Signs/Labs
Vital Signs
Temp Pulse Resp BP Pulse Ox
98.2 F 78 16 91/58 98
01/23/24 11:00 01/23/24 11:30 01/23/24 11:00 01/23/24 11:00 01/23/24 11:15
01/22/24 01/23/24 01/24/24
06:59 06:59 06:59
Actual Weight 65.9 kg 68.6 kg
01/23/24 03:56
01/23/24 03:56
PT 19.4 Sec (11.4-14.6) H 01/22/24 14:22
INR 1.58 01/22/24 14:22
APTT 40.6 Sec (23.4-35.0) H 01/22/24 14:22
Magnesium 2.1 mg/dl (1.6-2.3) 01/23/24 03:56
Physical Exam
Constitutional: No acute distress
Cardiovascular: Rhythm & rate is regular, JVD pressure is normal and Rub present (In all cycles likely due to CT's)
Respiratory: Respiratory effort normal, Lungs clear to auscul., Wheeze Absent, Crackles Absent and Rhonchi Absent
Neuro/Psych: AO x 3
Data Reviewed
-
Date of Service: January 23, 2024
Medical Decision Making: Review of Case with other Provider (Reviewed with CVICU nurse Caron, off vasopressors, not using his pacemaker)
EKG: Other (Telemetry sinus not pacing)
[2024-01-23 11:58] LABS: Glucose - Point of Care 92 mg/dl (70-99)
[2024-01-23] MEDS: NSS IV (12:05)
[2024-01-23 13:45] LABS: Glucose - Point of Care 129 mg/dl (70-99)
--- NOTE | 2024-01-23 14:25 | W.PN.INTV ---
Today's Communication / Plan
Recommendations
Continue postoperative care
Daily chest x-ray
Follow H&H
Monitor heart rate
Monitor chest tube output
Transferred to telemetry
Signed off
Assessment
-
73-year-old man with history of aortic stenosis, coronary artery disease with multiple vessel involvement. Admitted for aortic valve replacement and coronary artery bypass. Consulted for postoperative critical care management.
Status post coronary artery bypass/aortic valve replacement 01/22/2024-Dr. Espinoza
Postoperative mechanical ventilation
Postoperative anemia
Conditions present prior admission:
Hypertension
Severe aortic stenosis
History of bleeding ulcer 2016
Assessment and plan:
Postoperative day 1
Doing well. Sitting out of bed. Conversant.
Extubated 01/22/2024.
Incentive spirometry encouraged
Increase activity as able
Analgesia with narcotics as needed. Continue to monitor respiratory status closely.
Postoperative blood loss Anemia noted-status posttransfusion
Follow H&H
-
Hemodynamics -off vasopressors.
Bradycardic overnight-currently stable
Normal renal function
Adequate urinary output
Chest tube with no excessive drainage-no air leak.
Chest x-ray reviewed: With no pneumothorax or fluid collections.
Advance diet as tolerated
Head of the bed elevation
Glycemic control per protocol
DVT prophylaxis when safe from the surgical perspective.
Patient has been transferred to telemetry
Critical care team will sign off.
Subjective Dataa
Subjective Data
Date of Service:
Date of Service: January 23, 2024
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
Subjective:
Extubated.
Denies any significant shortness of breath at rest
Reports discomfort chest tube entry site
Bradycardic overnight noted
Review of Systems
Cardiopulmonary: Dyspnea (n) and Cough (not significant)
GI: Abdominal Pain (n) and Nausea (n)
Objective Data
Data Reviewed
Vital Signs / I&O / Oxygen:
Vital Signs
Temp Pulse Resp BP Pulse Ox
98.2 F 78 16 94/59 94
01/23/24 14:00 01/23/24 14:15 01/23/24 14:00 01/23/24 14:00 01/23/24 14:00
Intake and Output
01/22/24 01/23/24 01/24/24
06:59 06:59 06:59
Intake Total 1037.1 / 1047.5 289.6 / 289.6
Output Total 1715 / 1860 665 / 665
Balance -677.9 / -812.5 -375.4 / -375.4
SaO2 [CPAP/PSV] 100
SaO2 [SIMV] 100
SaO2 94
Nasal Cannula flow liters per 2
minute
Physical Exam
General: Comfortable
HEENT: Normocephalic
Cardiovascular: S1-S2 and Other (Sternotomy dressed, intact)
Respiratory: Clear and Chest Tube (No air leak or excessive drainage)
GI: Soft and Non Distended
Neurology: Awake, Alert, AO x 3 and No Motor Deficits
Labs/Micro/Reports
Lab Data
01/23/24 03:56
01/23/24 03:56
Laboratory Results
01/22/24 01/22/24
14:22 17:16
PT 19.4 H
INR 1.58
APTT 40.6 H
pH 7.38 7.40
pCO2 41 38
pO2 185 H 161 H
HCO3 24.3 23.5
O2 Delivery Level Not Reportable
--- NOTE | 2024-01-23 16:12 | PTCARENOTE ---
VSS, sinus rhythm on tele, pain well controlled.
--- NOTE | 2024-01-23 19:00 | PTCARENOTE ---
Assumed care of patient at 1900. Patient found OOB in chair at time of assessment. Patient is AOx4, follows commands appropriately, moves all extremities. Lung sounds are clear and equal bilaterally, respirations are somewhat shallow IS 500, saO2
96% on RA. There are CTx4: Medsx2 to one atrium and R/L pleural to one atrium with wall suction draining red sanguineous. Heart sounds have a regular rate and rhythm, there is a rub audible on auscultation, patient is NSR on the monitor, normal
palpable pulses, no observable edema. Patient has normal active BS throughout all four quadrants, reports small liquid BM during day and is voiding. There is a sternal incision with aquacell dressing that is CDI, a R groin puncture that is approx
with surg adhesive [employer]PATCHER [employer] SLURRY, and RLE incision approx with surg adhesive DISPATCHER [employer] SLURRY. Patient has R IJ cordis receiving KVO and 18G in R hand. No c/o pain. VSS. Call boucher within reach
[2024-01-23] MEDS: SENOKOT-S PO (20:53)
--- NOTE | 2024-01-23 22:51 | PTCARENOTE ---
Patient with two runs of PVC triplets at 2243. Patient asymptomatic. CT PA notified. Advised to place patient on 2L O2 via NC for now. Patient otherwise stable at this time.
[2024-01-24] VITALS (14 sets, daily range): BP systolic 98–146; BP diastolic 48–78; PULSE 82; O2SAT 98–99; BMI 26.4
--- NOTE | 2024-01-24 | PTCARENOTE ---
Patient reassessed. VSS. Remains SR on the monitor. Call boucher within reach.
[2024-01-24 04:47] LABS: Hematocrit 17.4 % (39.0-52.0); Hemoglobin 6.1 g/dL (13.0-18.0); Mean Corp Hgb Conc. 35.1 g/dL (33.0-37.0); Mean Corpuscular Hgb 32.8 pg (27.0-31.0); Mean Corpuscular Volume 93.5 fL (80.0-94.0); Mean Platelet Volume 11.1 fL (7.4-10.4); Platelet Count 123 10^3/uL (130-400); Red Blood Cell Count 1.86 10^6/uL (4.70-6.10); Red Cell Dist. Width 12.8 % (11.5-14.5); White Blood Cell Count 15.2 10^3/uL (4.8-10.8)
[2024-01-24 04:54] LABS: Blood Urea Nitrogen 28 mg/dl (9-20); Calcium 7.5 mg/dl (8.4-10.2); Carbon Dioxide 28 mmol/L (22-30); Chloride 102 mmol/L (98-107); Estimated Creatinine Clearance 81 ml/min; Glucose 121 mg/dl (70-99); Magnesium 1.9 mg/dl (1.6-2.3); Sodium 132 mmol/L (135-145); eGFR > 60.00
[2024-01-24 05:19] LABS: Hematocrit 22.3 % (39.0-52.0); Hemoglobin 7.8 g/dL (13.0-18.0); Mean Corpuscular Hgb 32.4 pg (27.0-31.0); Mean Corpuscular Volume 92.5 fL (80.0-94.0); Mean Platelet Volume 10.9 fL (7.4-10.4); Platelet Count 138 10^3/uL (130-400); Red Blood Cell Count 2.41 10^6/uL (4.70-6.10); Red Cell Dist. Width 12.9 % (11.5-14.5); White Blood Cell Count 13.7 10^3/uL (4.8-10.8)
--- NOTE | 2024-01-24 06:27 | PTCARENOTE ---
Patient reassessed. VSS. No c/o pain. AM labs obtained. AM hygiene care provided. Assisted to oob to chair without incident. Call boucher within reach.
[2024-01-24] MEDS: TYLENOL 1000 MG PO ×3 (06:43→22:06)
--- NOTE | 2024-01-24 07:21 | W.PN.CT ---
Today's Communication / Plan
-
-pod #2
-no issues overnight, doing well, walked in hallways
-several brief runs of 3 beat NSVT (asymptomatic)
-CT outputs: 2 meds 75/295 and 2 pleur 75/250 in 12/24 hrs
-hg 7.8 (8.5 yesterday)
-consider diuresis
-continue current meds
-IS 1750 so far, encourage OOB
Assessment / Plan
-
- Severe symptomatic /mv-CAD - s/p AVR (#25mm Inspiris); CABG x 3 (SCAR to LAD, GSV to OM1 inferior branch, GSV to LPDA) on 01/22/24, pod #2
- Intraop SANDRA: LVEF 65% w/o RWMA, significant LVH, RV normal. Trace MR, mild TR. Well-seated AVR w/o AI or PVL. P/M 01/02 at CI of 2.8. Mild ascending aortic dilation to 3.7mm
- Baseline rhythm was NSR in 40s under GA, completion rhythm is continued NSR in 40s - currently V-pacing at 80bpm for improved hemodynamics
- HTN/HLD
- Mild MR/mild TR
- Hx bleeding ulcer 2015
- L rotator cuff repair 2019
- Non-smoker
- Chronic prednisone 4 mg/day
- Acute postop blood loss anemia - s/p 1 pRBC for Hg 7.9
- Acute postop coagulopathy - s/p 1 unit platelets
- Acute postop atelectasis
- Acute postop hypovolemia with subsequent hypervolemia
Discussed patient care with: Nursing and Care Team
Subjective
Procedure
- s/p AVR (#25mm Inspiris); CABG x 3 (SCAR to LAD, GSV to OM1 inferior branch, GSV to LPDA) on 01/22/24
-
Date of Service: January 24, 2024
Objective Data
-
Lab Results
01/24/24 04:55
01/24/24 04:17
PT 19.4 Sec (11.4-14.6) H 01/22/24 14:22
INR 1.58 01/22/24 14:22
APTT 40.6 Sec (23.4-35.0) H 01/22/24 14:22
Vital Signs
Vital Signs
Temp Pulse Resp BP Pulse Ox
98.1 F 91 20 110/63 100
01/24/24 03:00 01/24/24 06:15 01/24/24 03:00 01/24/24 04:01 01/24/24 05:[address]
CT Intake/Output/Weight
01/23/24 01/24/24 01/24/24
18:59 06:59 18:59
Intake Total 309.6 / 449.6 140 / 449.6
Output Total 895 / 1320 425 / 1320
Balance -585.4 / -870.4 -285 / -870.4
SaO2: 100
Physical Exam
-
General: Awake and AOx3
Cardiovascular: Regular rate & rhythm, No Murmurs and No Rub
Respiratory: Decreased Breath Sounds
Sternum: Stable
Incision: Clean, Dry and Intact
Extremities: No Edema
Abdomen: soft, nontender, nondistended, + bowel sounds
Data Reviewed
-
Lab Results: Results Reviewed
Medications: Active Meds Reviewed
Chest X-Ray: Report Reviewed and Image Reviewed
ECG: Report Reviewed and Image Reviewed
--- NOTE | 2024-01-24 08:18 | W.PN.CD ---
Today's Communication / Plan
-
Furosemide 40 mg IV x1 and monitor.
Encourage incentive spirometry and ambulation.
Chest tube/pain management per CT surgery.
Impression / Plan
-
Impression/Plan: 73M with hypertension, prior bleeding ulcer (2015), dyslipidemia, coronary artery disease, and aortic stenosis presents for AVR/CABG
#Coronary artery disease
-Chronic, progressive.
-S/P CABG x 3 (Whitney�LAD, GSV�OM1 inferior branch, GSV�LPDA) with Dr. Espinoza, 01/22/2024.
-Wean pressors/inotropes for MAP > 65 mmHg, CI > 1.8 L/min/m2.
-Chest tube/pain management per CT surgery.
-Encourage incentive spirometry, ambulation when appropriate.
-Its time to start diuresis. Furosemide 40 mg IV x1 and monitor response.
#Severe aortic stenosis
-Chronic, progressive.
-S/P aortic valve replacement (#25 Lutz Inspiris) with Dr. Espinoza, 01/22/2024.
-Post operative management as above.
#Postoperative anemia
-Acute but expected
-Status post 2 unit PRBC.
-Continue to monitor.
#Hypertension
-Chronic.
-Follow with recovery.
#Dyslipidemia
-Chronic, stable.
-Continue high intensity statin with goal LDL <55, last LDL 90 (pre-statin).
#PUD with prior bleeding ulcer
-Resolved, requiring admission and inpatient transfusions, 10/2015.
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 Raman.
Subjective/Interval History:
Weight up 1.1 kg from yesterday, 3.8 kg from baseline.
BP's are much more consistent today.
Transfused 2 units of PRBCs on 01/22/2024.
Hbg 6.1 this morning - recheck shows 7.8 (lab error).
DATA:
Intraoperative SANDRA, 01/22/2024:
CONCLUSIONS
Overall LVEF is approximately 60% with no RWMA.
Moderate concentric left ventricular hypertrophy.
Stage I Diastolic dysfunction.
Trace tricuspid regurgitation.
Severe aortic stenosis.
Mild to moderate aortic insufficiency.
CHRIS calculates to 0.9 cm2 by continuity equation.
Trace mitral regurgitation.
Mid ascending aorta is mildly dilated measuring 3.7 cm at the level of the RPA.
Mild sessile atheroma seen in the descending aorta and distal arch.
POST OPERATIVE FINDINGS
The patient underwent an AVR with a size 25 bioprosthetic valve and a CABG.
Postop rhythm is now V-paced. RV and LV function are normal. Overall LVEF is
now approximately 65% with no new RWMA. The AVR is well seated allowing normal
cusp motion. No AI or perivalvular leaks noted. Max AV gradient measures 22
mmHg, mean is 12 mmHg. Cardiac index measures 2.8 at this time. Trace MR.
Mild TR. PV appears normal. Aortic scan is unchanged.
Cardiac Catheterization, 12/23/2023:
CONCLUSIONS:
1. Left dominant circulation with a 70% lesion in the proximal portion of the LPDA, a 50% lesion in the midportion of the lower branch of OM1 and an occlusive 70% lesion in the mid LAD (IFR = 0.78).
2. Severe/critical aortic valve stenosis by echocardiography (mean gradient = 71 mmHg).
3. Normal filling pressures (PCWP = 15 mmHg at 67.3 kg).
Physical Exam
Vital Signs/Labs
Vital Signs
Temp Pulse Resp BP Pulse Ox
36.7 C 91 20 110/63 100
01/24/24 03:00 01/24/24 06:15 01/24/24 03:00 01/24/24 04:01 01/24/24 07:25
01/22/24 01/23/24 01/24/24
11:59 11:59 11:59
Actual Weight 65.9 kg 68.6 kg 69.7 kg
01/24/24 04:55
01/24/24 04:17
PT 19.4 Sec (11.4-14.6) H 01/22/24 14:22
INR 1.58 01/22/24 14:22
APTT 40.6 Sec (23.4-35.0) H 01/22/24 14:22
Magnesium 1.9 mg/dl (1.6-2.3) 01/24/24 04:17
Physical Exam
Constitutional: No acute distress and Comfortable
EENT: Anicteric and Moist mucous membranes
Cardiovascular: Rhythm & rate is regular, Pedal edema is absent, JVD pressure is normal, S1S2 is normal and Murmur/rub/gallop absent
Respiratory: Respiratory effort normal and Other (Decreased throughout.)
GI: Soft, Distention absent, Flat, Non tender and Normal bowel sounds
Neuro/Psych: AO x 3
Data Reviewed
-
Date of Service: January 24, 2024
Medical Decision Making: Reviewed Test Results, Independent Historian Assessment and Test Interpretation
EKG: Tracing Personally Visualized and interpreted and Report Reviewed by me
Echo: Report Reviewed by me
X-Ray/CT/US/MRI/NUC/PET: Image Personally Visualized and interpreted and Report Reviewed by me
Medical Tests (PFT, Pathology etc): Image Personally Visualized and interpreted and Report Reviewed by me
Labs: Labs Reviewed by me
Old Records: Reviewed
[2024-01-24] MEDS: MAGNESIUM OXIDE 500 MG PO ×2 (09:57→19:48)
[2024-01-24] MEDS: LIPITOR 40 MG PO (09:57)
[2024-01-24] MEDS: NEURONTIN 100 MG PO ×3 (09:57→22:06)
[2024-01-24] MEDS: PACERONE 200 MG PO ×3 (09:57→22:06)
[2024-01-24] MEDS: LOW STRENGTH ASPIRIN 81 MG PO (09:57)
[2024-01-24] MEDS: PROTONIX 40 MG PO (09:57)
[2024-01-24] MEDS: PLAVIX 75 MG PO (09:57)
[2024-01-24] MEDS: LASIX 40 MG IV (09:58)
[2024-01-24] MEDS: LIDOCAINE 4% PATCH 1 PATCH TOPICAL (09:58)
[2024-01-24] MEDS: SENOKOT-S PO ×2 (10:03→19:25)
[2024-01-24] MEDS: BACTROBAN 2% OINTMENT 1 APPLIC NASAL ×2 (10:04→19:48)
--- NOTE | 2024-01-24 10:54 | PTCARENOTE ---
assumed care of pt from previous shift RN, sinus rhythm on tele, VSS, + peripheral pulses, no edema. Lungs diminished, pox 96% on RA, coughing and deep breathing encouraged. +bs, tolerating PO intake, voids spontaneously. CT x4 removed as ordered.
Right IJ cordis w KVO infusing, PIV flushes easily. Sternal aquacell dressing intact. plan of care reviewed, questions encouraged.
--- NOTE | 2024-01-24 12:53 | PTCARENOTE ---
VSS, sinus rhythm maintained on tele, pain well controlled. Pt ambulating independently.
[2024-01-24] MEDS: NSS IV (14:59)
--- NOTE | 2024-01-24 16:19 | PTCARENOTE ---
VSS, sinus rhythm maintained, pt ambulating independently.
--- NOTE | 2024-01-24 19:26 | PTCARENOTE ---
Pt. received at change of shift. Pt. seen and assessed in room. Pt. AOx3, with no complaints at this time. VS taken, tele reading NSR 70s. This RN explained the plan of care, pt. verbalizes understanding. Call boucher within reach. Continuing to
monitor at this time.
[2024-01-25] VITALS (10 sets, daily range): BP systolic 73–140; BP diastolic 41–79; PULSE 88; O2SAT 98; BMI 26.1
--- NOTE | 2024-01-25 04:07 | W.PN.CT ---
Addendum entered and electronically signed by Celestino Espinoza MD 01/25/24 08:08:
I saw and examined the patient.
The PA's note was reviewed and I agree with the note.
Comment:
Continue diuresis
Follow anemia
Check CXR this afternoon to f/u R apical PTX
OOB/IS/ambulate
D/C planning for hopefully tomorrow
Original Note:
Today's Communication / Plan
-
-pod #3
-no issues overnight, doing well
-diuresed with 40 iv Lasix 01/23 (UO unknown)- continue. Wt is up 7 lbs from preop
-follow Hg - 7.0 today (7.8 on 01/23 and 8.5 on 01/22)- diurese
-postop meme resolved, hr 70s-80s - resumed BB
-repleted Ca
-follow CXR for small R apical PTX
-current meds (ASA, Plavix, Lipitor, Lopressor, Amio, Protonix)
-encourage IS, OOB, ambulate
Assessment / Plan
-
- Severe symptomatic /mv-CAD - s/p AVR (#25mm Inspiris); CABG x 3 (SCAR to LAD, GSV to OM1 inferior branch, GSV to LPDA) on 01/22/24, pod #3
- Intraop SANDRA: LVEF 65% w/o RWMA, significant LVH, RV normal. Trace MR, mild TR. Well-seated AVR w/o AI or PVL. P/M 01/02 at CI of 2.8. Mild ascending aortic dilation to 3.7mm
- Baseline rhythm was NSR in 40s under GA, completion rhythm is continued NSR in 40s - currently V-pacing at 80bpm for improved hemodynamics
- HTN/HLD
- Mild MR/mild TR
- Hx bleeding ulcer requiring admission and inpatient transfusions, 10/2015.
- L rotator cuff repair 2019
- Non-smoker
- Chronic prednisone 4 mg/day
- Acute postop blood loss anemia - s/p 1 pRBC for Hg 7.9
- Acute postop coagulopathy - s/p 1 unit platelets
- Acute postop atelectasis
- Acute postop hypovolemia with subsequent hypervolemia
- Acute postop small R PTX
Discussed patient care with: Nursing and Care Team
Subjective
Procedure
- s/p AVR (#25mm Inspiris); CABG x 3 (SCAR to LAD, GSV to OM1 inferior branch, GSV to LPDA) on 01/22/24
-
Date of Service: January 25, 2024
Objective Data
-
PT 19.4 Sec (11.4-14.6) H 01/22/24 14:22
INR 1.58 01/22/24 14:22
APTT 40.6 Sec (23.4-35.0) H 01/22/24 14:22
Vital Signs
Vital Signs
Temp Pulse Resp BP Pulse Ox
98.5 F 77 20 103/53 92
01/24/24 22:09 01/25/24 03:00 01/24/24 22:09 01/24/24 23:35 01/24/24 22:09
CT Intake/Output/Weight
01/24/24 01/24/24 01/25/24
06:59 18:59 06:59
Intake Total 140 / 449.6
Output Total 425 / 1320
Balance -285 / -870.4
SaO2: 92
Physical Exam
-
General: Awake and AOx3
Cardiovascular: Regular rate & rhythm, No Murmurs and Rub
Respiratory: Decreased Breath Sounds
Sternum: Stable
Incision: Clean, Dry and Intact
Extremities: Edema +1
Data Reviewed
-
Lab Results: Results Reviewed
Medications: Active Meds Reviewed
Chest X-Ray: Report Reviewed and Image Reviewed
ECG: Report Reviewed and Image Reviewed
[2024-01-25 04:35] LABS: Hematocrit 19.8 % (39.0-52.0); Mean Corp Hgb Conc. 35.4 g/dL (33.0-37.0); Mean Corpuscular Hgb 32.9 pg (27.0-31.0); Mean Platelet Volume 10.9 fL (7.4-10.4); Platelet Count 112 10^3/uL (130-400); Red Blood Cell Count 2.13 10^6/uL (4.70-6.10); Red Cell Dist. Width 12.2 % (11.5-14.5); White Blood Cell Count 10.4 10^3/uL (4.8-10.8)
[2024-01-25] MEDS: TYLENOL 1000 MG PO ×2 (04:52→20:57)
[2024-01-25 05:25] LABS: Blood Urea Nitrogen 16 mg/dl (9-20); Calcium 6.8 mg/dl (8.4-10.2); Carbon Dioxide 29 mmol/L (22-30); Chloride 103 mmol/L (98-107); Estimated Creatinine Clearance 95 ml/min; Glucose 97 mg/dl (70-99); Magnesium 1.8 mg/dl (1.6-2.3); Potassium 3.8 mmol/L (3.5-5.1); Sodium 133 mmol/L (135-145); eGFR > 60.00
[2024-01-25] MEDS: CALCIUM GLUCONATE 100 IV (05:48)
[2024-01-25] MEDS: LASIX 40 MG IV (08:55)
[2024-01-25] MEDS: LIPITOR 40 MG PO (08:55)
[2024-01-25] MEDS: PROTONIX 40 MG PO (08:55)
[2024-01-25] MEDS: NEURONTIN 100 MG PO ×3 (08:55→20:57)
[2024-01-25] MEDS: PLAVIX 75 MG PO (08:55)
[2024-01-25] MEDS: LOW STRENGTH ASPIRIN 81 MG PO (08:55)
[2024-01-25] MEDS: MAGNESIUM OXIDE 500 MG PO ×2 (08:55→20:57)
[2024-01-25] MEDS: LOPRESSOR 12.5 MG PO ×2 (08:55→20:57)
[2024-01-25] MEDS: PACERONE 200 MG PO ×3 (08:55→20:57)
[2024-01-25] MEDS: BACTROBAN 2% OINTMENT 1 APPLIC NASAL ×2 (08:56→20:59)
[2024-01-25] MEDS: SENOKOT-S PO (08:56)
[2024-01-25] MEDS: LIDOCAINE 4% PATCH TOPICAL (08:56)
--- NOTE | 2024-01-25 10:24 | PTCARENOTE ---
assumed care of pt from previous shift RN, sinus rhythm on tele, VSS. Lungs diminished, coughing and deep breathing encouraged. +bs, tolerating PO intake, voids independently. Surgical sites stable, cordis and PIV flush easily. Pt denies pain. Plan
of care reviewed and questions encouraged.
--- NOTE | 2024-01-25 12:55 | PTCARENOTE ---
VSS, cordis removed without incident. F/U CXR completed.
[2024-01-25] MEDS: NSS IV (13:37)
[2024-01-25] MEDS: TYLENOL PO (14:43)
--- NOTE | 2024-01-25 19:15 | PTCARENOTE ---
assumed care of pt from previous RN. pt AAOx4, sinus rhythm on tele, +pulses. 96% on RA Lungs diminished,. +bs, voids independently. Surgical sites intact, PIV flush easily. Pt denies pain. Plan of care reviewed and questions encouraged.
[2024-01-25] MEDS: SENOKOT-S 1 TABLET PO (20:57)
--- NOTE | 2024-01-25 23:07 | PTCARENOTE ---
pt resting comfortably in bed. VSS NSR per tele monitor, assessment remains unchanged
[2024-01-26 03:11] VITALS: BP 114/57
--- NOTE | 2024-01-26 03:14 | PTCARENOTE ---
VSS, NSR per tele monitor, assessment remains unchanged
--- NOTE | 2024-01-26 04:51 | W.PN.CT ---
Addendum entered and electronically signed by Celestino Espinoza MD 01/26/24 08:49:
I saw and examined the patient.
The PA's note was reviewed and I agree with the note.
Comment:
Hgb 7.6 this AM (stable/improved)
CXR yesterday afternoon w/ unchanged small apical PTX - check 2V CXR today
Diuresis
OOB/IS/ambulate
D/C home later today versus tomorrow
DATA BELOW INCORRECT.
Original Note:
Today's Communication / Plan
-
-pod #4
-no issues overnight, doing well
-continue diuresis
-follow Hg - 7.0 today (7.8 on 01/23 and 8.5 on 01/22)- diurese
-follow CXR for small R apical PTX
-current meds (ASA, Plavix, Lipitor, Lopressor, Amio, Protonix)
-encourage IS, OOB, ambulate
-discharge planning
Assessment / Plan
-
- Severe symptomatic /mv-CAD - s/p AVR (#25mm Inspiris); CABG x 3 (SCAR to LAD, GSV to OM1 inferior branch, GSV to LPDA) on 01/22/24, pod #4
- Intraop SANDRA: LVEF 65% w/o RWMA, significant LVH, RV normal. Trace MR, mild TR. Well-seated AVR w/o AI or PVL. P/M 01/02 at CI of 2.8. Mild ascending aortic dilation to 3.7mm
- Baseline rhythm was NSR in 40s under GA, completion rhythm is continued NSR in 40s - currently V-pacing at 80bpm for improved hemodynamics
- HTN/HLD
- Mild MR/mild TR
- Hx bleeding ulcer requiring admission and inpatient transfusions, 10/2015.
- L rotator cuff repair 2019
- Non-smoker
- Chronic prednisone 4 mg/day
- Acute postop blood loss anemia - s/p 1 pRBC for Hg 7.9
- Acute postop coagulopathy - s/p 1 unit platelets
- Acute postop atelectasis
- Acute postop hypovolemia with subsequent hypervolemia
- Acute postop small R PTX
Subjective
Procedure
- s/p AVR (#25mm Inspiris); CABG x 3 (SCAR to LAD, GSV to OM1 inferior branch, GSV to LPDA) on 01/22/24
-
Date of Service: January 26, 2024
Objective Data
-
PT 19.4 Sec (11.4-14.6) H 01/22/24 14:22
INR 1.58 01/22/24 14:22
APTT 40.6 Sec (23.4-35.0) H 01/22/24 14:22
Vital Signs
Vital Signs
Temp Pulse Resp BP Pulse Ox
98.7 F 65 16 114/57 96
01/26/24 03:13 01/26/24 03:11 01/26/24 03:13 01/26/24 03:11 01/26/24 03:13
CT Intake/Output/Weight
01/25/24 01/25/24 01/26/24
06:59 18:59 06:59
Intake Total 310 / 310
Output Total 500 / 500
Balance -500 / -480 310 / 310
SaO2: 96
Physical Exam
-
General: AOx3
Cardiovascular: Regular rate & rhythm
Respiratory: Clear and Decreased Breath Sounds
Sternum: Stable
Incision: Clean, Dry and Intact
Extremities: No Edema
[2024-01-26] MEDS: TYLENOL 1000 MG PO (05:06)
[2024-01-26 05:19] VITALS: BMI 26.1
[2024-01-26 06:06] LABS: Blood Urea Nitrogen 12 mg/dl (9-20); Calcium 7.9 mg/dl (8.4-10.2); Carbon Dioxide 32 mmol/L (22-30); Chloride 93 mmol/L (98-107); Estimated Creatinine Clearance 81 ml/min; Glucose 135 mg/dl (70-99); Magnesium 1.9 mg/dl (1.6-2.3); Potassium 3.9 mmol/L (3.5-5.1); Sodium 132 mmol/L (135-145); eGFR > 60.00
[2024-01-26 06:10] LABS: Hemoglobin 7.6 g/dL (13.0-18.0); Mean Corp Hgb Conc. 34.5 g/dL (33.0-37.0); Mean Corpuscular Hgb 32.6 pg (27.0-31.0); Mean Corpuscular Volume 94.4 fL (80.0-94.0); Mean Platelet Volume 11.2 fL (7.4-10.4); Platelet Count 155 10^3/uL (130-400); Red Blood Cell Count 2.33 10^6/uL (4.70-6.10); Red Cell Dist. Width 12.6 % (11.5-14.5); White Blood Cell Count 8.8 10^3/uL (4.8-10.8)
[2024-01-26 08:23] VITALS: BP 119/62
--- NOTE | 2024-01-26 08:30 | PTCARENOTE ---
Assumed care of patient. Walking rounds completed with previous RN. Pt assessed while he was sitting in the chair. Pt alert and oriented x4. Pt denies pain, shortness of breath, and nausea. MONTALVO with equal strength throughout, independent in the
room. NSR on tele with rates in the 70s. BP 119/62. Heart tones audible. bilateral radial and DP pulses palpable. +1 lower extremity edema. POX 95% on RA. Lungs clear throughout. IS encouraged-1000ml achieved. No cough noted. Abdomen soft,
nontender. +BS. Pt reports BM after surgery. Pt voiding without issue, tolerating diet. Sternal incision covered with antibacterial dressing, CDI. Old chest tube sites covered, CDI. Right groin puncture, EILEEN, Right SVG harvest approximated with skin
glue, EILEEN. Right forearm PIV intact. See MAR for medication administration. See worklist for complete nursing assessment. Plan of care reviewed and patient in agreement.
[2024-01-26] MEDS: BACTROBAN 2% OINTMENT 1 APPLIC NASAL (08:36)
[2024-01-26] MEDS: LIDOCAINE 4% PATCH 1 PATCH TOPICAL (08:36)
[2024-01-26] MEDS: DIAMOX 250 MG PO (08:37)
[2024-01-26] MEDS: NEURONTIN 100 MG PO (08:37)
[2024-01-26] MEDS: LIPITOR 40 MG PO (08:37)
[2024-01-26] MEDS: SENOKOT-S 1 TABLET PO (08:37)
[2024-01-26] MEDS: PACERONE 200 MG PO (08:37)
[2024-01-26] MEDS: MAGNESIUM OXIDE 500 MG PO (08:37)
[2024-01-26] MEDS: PROTONIX 40 MG PO (08:37)
[2024-01-26] MEDS: PLAVIX 75 MG PO (08:37)
[2024-01-26] MEDS: LOW STRENGTH ASPIRIN 81 MG PO (08:37)
[2024-01-26] MEDS: LOPRESSOR 12.5 MG PO (08:37)
[2024-01-26] MEDS: KCL 40 MEQ PO (08:37)
[2024-01-26] MEDS: NSS IV (08:38)
[2024-01-26 11:34] VITALS: BP 112/61
[2024-01-26 11:48] VITALS: BP 112/61
--- NOTE | 2024-01-26 12:30 | PTCARENOTE ---
Discharge order received. Sternal aquacel d/c, incision approximated, no drainage. Epicardial v-wire cut by ct plant assigner. pt tolerated. Pt assisted to get a shower, tolerated. Discharge instructions reviewed. All questions answered. Pt wheeled out of
hospital via wheelchair to car. All belongings sent with patient.
== END 2024-01-26 13:09 | disposition home or self-care (01) | DRG 220 ==
LOC: CVICU 04:49
PROVIDERS: Anesthesiology; Physician Assistant Medical; ADMITTING PHYSICIAN Thoracic Surgery (Cardiothoracic Vascular Surgery); CONSULT PHYSICIAN Internal Medicine Critical Care Medicine; FAMILY PHYSICIAN Family Medicine
PROC: 06BP4ZZ Excision of Right Saphenous Vein, Percutaneous Endoscopic Approach (ICD-10-PCS; 2024-01-22)
PROC: 30233N1 Transfusion of Nonautologous Red Blood Cells into Peripheral Vein, Percutaneous Approach (ICD-10-PCS; 2024-01-22)
PROC: 30233R1 Transfusion of Nonautologous Platelets into Peripheral Vein, Percutaneous Approach (ICD-10-PCS; 2024-01-22)
PROC: B24BZZ4 Ultrasonography of Heart with Aorta, Transesophageal (ICD-10-PCS; 2024-01-22)
PROC: 02100ZC Bypass Coronary Artery, One Artery from Thoracic Artery, Open Approach (ICD-10-PCS; 2024-01-22)
PROC: 021109W Bypass Coronary Artery, Two Arteries from Aorta with Autologous Venous Tissue, Open Approach (ICD-10-PCS; 2024-01-22)
PROC: 02RF08Z Replacement of Aortic Valve with Zooplastic Tissue, Open Approach (ICD-10-PCS; 2024-01-22)
PROC: 5A1221Z Performance of Cardiac Output, Continuous (ICD-10-PCS; 2024-01-22)
DX: I25.10 Atherosclerotic heart disease of native coronary artery without angina pectoris (principal); D62 Acute posthemorrhagic anemia; D68.8 Other specified coagulation defects; J98.11 Atelectasis; I35.0 Nonrheumatic aortic (valve) stenosis; I10 Essential (primary) hypertension; I77.810 Thoracic aortic ectasia; E78.5 Hyperlipidemia, unspecified; E87.70 Fluid overload, unspecified; E86.1 Hypovolemia; Z79.52 Long term (current) use of systemic steroids; Z79.82 Long term (current) use of aspirin; Z79.899 Other long term (current) drug therapy; Z82.49 Family history of ischemic heart disease and other diseases of the circulatory system; Z87.11 Personal history of peptic ulcer disease
CPT/HCPCS: 88305; 88311; 36415; 71045; 71046; 80048; 80053; 81003; 81015; 82248; 82330; 82565; 82805; 82810; 82947; 82962; 83036; 83735; 84132; 84302; 84520; 85014; 85018; 85025; 85027; 85049; 85610; 85730; 86850; 86900; 86901; 86920; 87070; 93005; 93312; 93320; 93325; 93880; 94002; P9016; P9045; P9047; P9073

== ENCOUNTER 2024-01-28 11:40 | Emergency (ER) | payer MEDICARE, OTHER, SELFPAY ==
[2024-01-28 11:48] VITALS: BP 144/75
[2024-01-28 12:15] LABS: % Basophils 0.5 % (0-2); % Eosinophils 5.6 % (0-6); % Immature Granulocytes 0.5 % (0-0.5); % Lymphocytes 18.6 % (20.5-51.1); % Monocytes 13.5 % (1.7-9.3); % Neutrophils 61.3 % (42.2-75.2); Absolute Eosinophils 0.5 10^3/uL (0-0.7); Absolute Lymphocytes 1.6 10^3/uL (1.2-3.4); Absolute Monocytes 1.2 10^3/uL (0.1-0.6); Absolute Neutrophils 5.4 10^3/uL (1.4-6.5); Hemoglobin 7.8 g/dL (13.0-18.0); Mean Corp Hgb Conc. 33.9 g/dL (33.0-37.0); Mean Corpuscular Volume 94.3 fL (80.0-94.0); Mean Platelet Volume 10.4 fL (7.4-10.4); Nucleated Red Blood Cells % 0 % (-); Platelet Count 237 10^3/uL (130-400); Red Blood Cell Count 2.44 10^6/uL (4.70-6.10); Red Cell Dist. Width 13.1 % (11.5-14.5); White Blood Cell Count 8.8 10^3/uL (4.8-10.8)
[2024-01-28 12:34] LABS: COVID-19 Antigen Negative (Negative)
[2024-01-28 12:37] LABS: Lactic Acid 1.1 mmol/L (0.7-2.0)
[2024-01-28 12:41] LABS: ALT (SGPT) 23 U/L (0-50); AST (SGOT) 25 U/L (17-59); Albumin 3.4 g/dl (3.5-5.0); Alkaline Phosphatase 45 U/L (38-126); Blood Urea Nitrogen 9 mg/dl (9-20); Calcium 7.8 mg/dl (8.4-10.2); Carbon Dioxide 24 mmol/L (22-30); Chloride 100 mmol/L (98-107); Glucose 97 mg/dl (70-99); Potassium 4.1 mmol/L (3.5-5.1); Sodium 133 mmol/L (135-145); Total Bilirubin 0.9 mg/dl (0.2-1.3); Total Protein 5.9 g/dl (6.3-8.2); eGFR > 60.00
[2024-01-28 13:43] VITALS: BP 127/69
--- NOTE | 2024-01-28 15:57 | ED.GENMED ---
History of Present Illness
<Hector Canela DO, Resident - Last Filed: 01/28/24 18:02>
General
Chief Complaint: Fever
Source: patient
Time Seen by Provider: 01/28/24 15:37
History of Present Illness
History of Present Illness:
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 Reports from home after home nurse measured a elevated
temperature. Tmax was 101 then down trended to approximate 99 per patient. In the emergency department patient is afebrile, white count is within normal limits and he has no complaints. Per patient's , he is more pale than usual.
Past History
<Hector Canela DO, Resident - Last Filed: 01/28/24 18:02>
Past History
ED Past Medical History: HTN, Valvular disease and Other (Gastric ulcers)
ED Past Surgical History: Cardiac (Triple-vessel CABG with prosthetic aortic valve replacement)
Social History
Tobacco: Non-smoker
Alcohol: Occasional
Review of Systems
<Hector Canela DO, Resident - Last Filed: 01/28/24 18:02>
Review of Systems
Constitutional: Reports fever
Respiratory: Reports no symptoms; Denies cough or trouble breathing
Cardiac: Reports no symptoms; Denies chest pain or palpitations
ABD/GI: Reports no symptoms
: Reports no symptoms; Denies dysuria or frequency
Musculoskeletal: Reports edema
Phy Exam
<Hector Canela DO, Resident - Last Filed: 01/28/24 18:02>
General Physical Exam
General Presentation: well appearing and no apparent distress
General Skin: warm and dry
Cardiovascular Exam
Cardiovascular Exam: regular rate/rhythm, no edema, no murmur and other (Sternal wound clean, no discharge or foul smells present.)
Pulmonary Exam
Pulmonary Exam: lungs clear
Gastrointestinal Exam
Gastrointestinal Exam: non tender, soft and non distended
Musculoskeletal Exam
Musculoskeletal Exam: no edema
Course
<Hector Canela DO, Resident - Last Filed: 01/28/24 18:02>
Orders/Labs/Results
Orders:
Orders
01/28/24 11:57
COVID-19 Antigen Urgent
Source: Nasal Swab
Complete Blood Count/With Diff Urgent
Comprehensive Metabolic Panel Urgent
Lactic Acid Urgent
Influenza A+B Rapid Molecular Urgent
BRII Source: Nasal Swab
Specimen Description:
01/28/24 16:06
CR Chest - 2 Views Urgent
Comment:
Reason For Exam: recent fever
Abnormal Lab Results
01/28/24
11:57
RBC 2.44 L 10^6/uL
(4.70-6.10)
Hgb 7.8 L g/dL
(13.0-18.0)
Hct 23.0 L %
(39.0-52.0)
MCV 94.3 H fL
(80.0-94.0)
MCH 32.0 H pg
(27.0-31.0)
Absolute Monos (auto) 1.2 H 10^3/uL
(0.1-0.6)
Lymphocytes % 18.6 L %
(20.5-51.1)
Monocytes % 13.5 H %
(1.7-9.3)
Sodium 133 L mmol/L
(135-145)
Creatinine 0.6 L mg/dL
(0.7-1.3)
Calcium 7.8 L mg/dl
(8.4-10.2)
Total Protein 5.9 L g/dl
(6.3-8.2)
Albumin 3.4 L g/dl
(3.5-5.0)
01/28/24 11:57
01/28/24 11:57
Vital Signs
Initial and Last Documented VS:
Initial Vital Signs
Temp Pulse Resp BP Pulse Ox
99.2 F 75 18 144/75 97
01/28/24 11:48 01/28/24 11:48 01/28/24 11:48 01/28/24 11:48 01/28/24 11:48
Last Documented Vital Signs
Temp Pulse Resp BP Pulse Ox
98.6 F 76 16 127/69 98
01/28/24 13:43 01/28/24 13:43 01/28/24 13:43 01/28/24 13:43 01/28/24 13:43
<Alex Iniguez, DO - Last Filed: 01/28/24 16:46>
Orders/Labs/Results
Orders:
Orders
01/28/24 11:57
COVID-19 Antigen Urgent
Source: Nasal Swab
Complete Blood Count/With Diff Urgent
Comprehensive Metabolic Panel Urgent
Lactic Acid Urgent
Influenza A+B Rapid Molecular Urgent
BRII Source: Nasal Swab
Specimen Description:
01/28/24 16:06
CR Chest - 2 Views Urgent
Comment:
Reason For Exam: recent fever
Abnormal Lab Results
01/28/24
11:57
RBC 2.44 L 10^6/uL
(4.70-6.10)
Hgb 7.8 L g/dL
(13.0-18.0)
Hct 23.0 L %
(39.0-52.0)
MCV 94.3 H fL
(80.0-94.0)
MCH 32.0 H pg
(27.0-31.0)
Absolute Monos (auto) 1.2 H 10^3/uL
(0.1-0.6)
Lymphocytes % 18.6 L %
(20.5-51.1)
Monocytes % 13.5 H %
(1.7-9.3)
Sodium 133 L mmol/L
(135-145)
Creatinine 0.6 L mg/dL
(0.7-1.3)
Calcium 7.8 L mg/dl
(8.4-10.2)
Total Protein 5.9 L g/dl
(6.3-8.2)
Albumin 3.4 L g/dl
(3.5-5.0)
01/28/24 11:57
01/28/24 11:57
Vital Signs
Initial and Last Documented VS:
Initial Vital Signs
Temp Pulse Resp BP Pulse Ox
99.2 F 75 18 144/75 97
01/28/24 11:48 01/28/24 11:48 01/28/24 11:48 01/28/24 11:48 01/28/24 11:48
Last Documented Vital Signs
Temp Pulse Resp BP Pulse Ox
98.6 F 76 16 127/69 98
01/28/24 13:43 01/28/24 13:43 01/28/24 13:43 01/28/24 13:43 01/28/24 13:43
<Hector Canela DO, Resident - Last Filed: 01/28/24 18:02>
MDM/Problems Addressed
Differential Diagnosis Includes:
Occult infection versus hyperthermia
MDM/Problems Addressed:
#Occult infection versus hyperthermia
Reports single episode Tmax 101 at home, has been taking Tylenol for pain
Recent admission with triple-vessel CABG and prosthetic aortic valve replacement
Patient has been afebrile in the ED, white count within normal limits, hemoglobin and chemistry at baseline
Sternal wound clean, no urinary symptoms, no cardiac or pulmonary symptoms
Elevated temperature could be secondary to postop atelectasis, will check two-view CXR
Chest x-ray resulted in small stable right apical pneumothorax with small bilateral pleural effusions with adjacent elective cyst
B is slightly decreased in size from prior and they could be a potential source of hyperthermia
Will hold off on further infectious workup as patient is afebrile and has a normal white count
<Hector Canela DO, Resident - Last Filed: 01/28/24 18:02>
*Critical Care Note
Total Time (30-74mins, 75-104mins- exclusive of procedures): Not Applicable
ED Attending Note
<Hector Canela DO, Resident - Last Filed: 01/28/24 18:02>
-
Portions of this chart may have been created with voice recognition software.� Occasional wrong word or��sound alike� substitutions may have occurred due to the inherent limitations of voice recognition software.
<Alex Iniguez, - Last Filed: 01/28/24 16:46>
ED Attending Note
Patient seen and examined by attending physician: Yes
I performed a history and physical exam of patient and discussed management with resident, I reviewed resident's note and agree with documented findings and plan of care.: Yes
ED Attending Note:
I have seen and evaluated the patient with a [id number] encounter. I have spoken to the resident and involved in the medical history, the physical exam, medical decision making.
Evaluation and management service: agree unless noted differently below.
Results interpretation: agree unless noted differently below.
Focused HPI: 73-year-old male presenting for evaluation of a fever. Patient had a recent CABG and valve replacement. Patient states this was the first day he was doing better and a visiting nurse checked his temperature and it was 100.1. Patient
does acknowledge that he was bundled up. Since the temperature was taken, patient has not taken any Motrin or Tylenol. He is afebrile here. Patient denies any source of infection such as shortness of breath, cough, sore throat, muscle aches or
abdominal pain or urinary symptoms
Physical exam: Sitting in bed comfortably. Lungs clear. Postsurgical incision clean and intact. Abdomen soft and nontender
Medical Decision Making: We discussed hyperthermia versus fever. Labs appear to be at baseline. He is afebrile here. Will obtain chest x-ray and will consider discharge if patient remains symptom-free and chest x-ray clear
Discharge Plan
Departure
Patient Disposition: Home (Routine Discharge)
Date of Disposition: 01/28/24
Time of Disposition: 16:43
Patient with high blood pressure during this ER visit?: No
Discharge Problem:
Hyperthermia
Instructions: Fever, Adult (DC)
Prescriptions:
No Action
aspirin 81 mg Tablet,Delayed Release (Dr/Ec)
81 mg PO DAILY
acetaminophen 325 mg Capsule
650 mg PO Q6H PRN (Reason: pain)
pantoprazole 40 MG tablet,delayed release (DR/EC)
40 mg PO DAILY
atorvastatin 40 mg tablet
40 mg PO DAILY Qty: 90 3RF
clopidogrel 75 mg Tablet
75 mg PO DAILY Qty: 30 2RF
gabapentin 100 mg Capsule
100 mg PO TID Qty: 90 0RF
metoprolol succinate [Toprol XL] 25 mg tablet extended release 24 hr
25 mg PO DAILY Qty: 30 1RF
ferrous sulfate 325 mg (65 mg iron) tablet
325 mg PO DAILY Qty: 30 1RF
Referrals:
Rosalva Smith DO [Family Provider] -
Activity Restrictions/Additional Instructions:
Please return for any worsening symptoms.
You may return at any time if you have further concerns.
Although the temperature was elevated at home, you have not spiked a temperature in the emergency department.
Please follow up with your doctor at the first available appointment, preferably this week.
The chest x-ray showed that the collapsed lung is stable and remains very small.
Thank you for choosing [facility].
Interventions
Interventions:
*Risk Screen - Suicide Last Done: 01/28/24 11:48
*General Assessment Last Done: 01/28/24 11:48
*Neglect/Abuse Screening Last Done: 01/28/24 11:48
ED- Fall Risk Assessment Last Done: 01/28/24 16:03
*ED COVID-19 Vaccine History Last Done: 01/28/24 11:48
*Nursing Disposition Last Done: 01/28/24 17:30
ED- Neurological Assessment Last Done: 01/28/24 16:03
ED-Skin Assessment Last Done: 01/28/24 16:03
Discharge Date and Time
Discharge Date/Time: 01/28/24 17:31
Print Language: JAPANESE
== END 2024-01-28 17:31 | disposition home or self-care (01) ==
LOC: EMR 11:40
PROVIDERS: Emergency Medicine; EMERGENCY PHYSICIAN Student in an Organized Health Care Education/Training Program; FAMILY PHYSICIAN Family Medicine
DX: R50.9 Fever, unspecified (principal); E78.5 Hyperlipidemia, unspecified; J90 Pleural effusion, not elsewhere classified; I10 Essential (primary) hypertension; I35.0 Nonrheumatic aortic (valve) stenosis; Z87.11 Personal history of peptic ulcer disease; Z95.1 Presence of aortocoronary bypass graft; Z95.2 Presence of prosthetic heart valve
CPT/HCPCS: 99284; 71046; 80053; 83605; 85025; 87502; 87811

== ENCOUNTER → 2024-02-10 11:06 | Outpatient (REF) | payer MEDICARE, OTHER, SELFPAY ==
[2024-02-10 15:57] LABS: % Basophils 1.1 % (0-2); % Eosinophils 3.7 % (0-6); % Immature Granulocytes 0.3 % (0-0.5); % Lymphocytes 17.3 % (20.5-51.1); % Monocytes 15.2 % (1.7-9.3); % Neutrophils 62.4 % (42.2-75.2); Absolute Basophils 0.1 10^3/uL (0-0.2); Absolute Eosinophils 0.3 10^3/uL (0-0.7); Absolute Lymphocytes 1.4 10^3/uL (1.2-3.4); Absolute Monocytes 1.2 10^3/uL (0.1-0.6); Hematocrit 32.2 % (39.0-52.0); Hemoglobin 10.4 g/dL (13.0-18.0); Mean Corp Hgb Conc. 32.3 g/dL (33.0-37.0); Mean Corpuscular Hgb 32.4 pg (27.0-31.0); Mean Corpuscular Volume 100.3 fL (80.0-94.0); Mean Platelet Volume 9.7 fL (7.4-10.4); Nucleated Red Blood Cells % 0 % (-); Platelet Count 389 10^3/uL (130-400); Red Blood Cell Count 3.21 10^6/uL (4.70-6.10); White Blood Cell Count 7.9 10^3/uL (4.8-10.8)
== END ==
LOC: HWLAB 11:06
PROVIDERS: ATTENDING PHYSICIAN Thoracic Surgery (Cardiothoracic Vascular Surgery); FAMILY PHYSICIAN Family Medicine
DX: D64.9 Anemia, unspecified (principal)
CPT/HCPCS: 36415; 85025

== ENCOUNTER 2024-03-13 14:55 | Outpatient (RCR) | payer MEDICARE, OTHER, SELFPAY ==
[2024-03-04 11:42] LABS: HDL Cholesterol 58 mg/dl; LDL Cholesterol, Calculated 83 mg/dl; Total Cholesterol 155 mg/dl (50-199); Triglyceride 72 mg/dl (10-149); Very Low Density Lipoprotein 14 mg/dl (0-30)
== END 2024-03-13 23:59 | disposition home or self-care (01) ==
LOC: CRHB 14:55
PROVIDERS: ATTENDING PHYSICIAN Student in an Organized Health Care Education/Training Program; FAMILY PHYSICIAN Family Medicine
DX: Z95.1 Presence of aortocoronary bypass graft (principal); I25.10 Atherosclerotic heart disease of native coronary artery without angina pectoris (principal); Z95.2 Presence of prosthetic heart valve
CPT/HCPCS: 36415; 80061; G0422; G0423

== ENCOUNTER 2024-04-10 13:40 | Outpatient (RCR) | payer MEDICARE, OTHER, SELFPAY | END 2024-04-10 23:59 | disposition home or self-care (01) | LOC: CRHB 13:40 | PROVIDERS: ATTENDING PHYSICIAN Student in an Organized Health Care Education/Training Program; FAMILY PHYSICIAN Family Medicine | DX: Z95.1 Presence of aortocoronary bypass graft (principal); Z95.2 Presence of prosthetic heart valve | CPT/HCPCS: G0422; G0423 ==

== ENCOUNTER → 2024-04-13 07:24 | Outpatient (REF) | payer MEDICARE, OTHER, SELFPAY ==
[2024-04-13 10:07] LABS: ALT (SGPT) 44 U/L (0-50); AST (SGOT) 35 U/L (17-59); HDL Cholesterol 58 mg/dl; LDL Cholesterol, Calculated 76 mg/dl; Total Cholesterol 151 mg/dl (50-199); Triglyceride 89 mg/dl (10-149); Very Low Density Lipoprotein 17 mg/dl (0-30)
== END ==
LOC: HWLAB 07:24
PROVIDERS: ATTENDING PHYSICIAN Nurse Practitioner; FAMILY PHYSICIAN Family Medicine
DX: E78.2 Mixed hyperlipidemia (principal)
CPT/HCPCS: 36415; 80061; 84450; 84460

== ENCOUNTER 2024-05-11 14:08 | Outpatient (RCR) | payer MEDICARE, OTHER, SELFPAY | END 2024-05-11 23:59 | disposition home or self-care (01) | LOC: CRHB 14:08 | PROVIDERS: ATTENDING PHYSICIAN Student in an Organized Health Care Education/Training Program; FAMILY PHYSICIAN Family Medicine | DX: I25.10 Atherosclerotic heart disease of native coronary artery without angina pectoris (principal); Z95.1 Presence of aortocoronary bypass graft; Z95.2 Presence of prosthetic heart valve | CPT/HCPCS: G0422; G0423 ==

== ENCOUNTER 2024-05-22 15:17 | Outpatient (RCR) | payer MEDICARE, OTHER, SELFPAY | END 2024-05-22 15:33 | disposition home or self-care (01) | LOC: CRHB 15:17 | PROVIDERS: ATTENDING PHYSICIAN Student in an Organized Health Care Education/Training Program; FAMILY PHYSICIAN Family Medicine | DX: Z95.1 Presence of aortocoronary bypass graft (principal); Z95.2 Presence of prosthetic heart valve | CPT/HCPCS: G0422; G0423 ==

== ENCOUNTER → 2024-05-25 07:45 | Outpatient (REF) | payer MEDICARE, OTHER, SELFPAY ==
[2024-05-25 09:29] LABS: % Basophils 0.8 % (0-2); % Eosinophils 2.6 % (0-6); % Immature Granulocytes 0.2 % (0-0.5); % Lymphocytes 36.5 % (20.5-51.1); % Monocytes 14.3 % (1.7-9.3); % Neutrophils 45.6 % (42.2-75.2); Absolute Basophils 0.1 10^3/uL (0-0.2); Absolute Eosinophils 0.2 10^3/uL (0-0.7); Absolute Lymphocytes 2.4 10^3/uL (1.2-3.4); Absolute Monocytes 0.9 10^3/uL (0.1-0.6); Hematocrit 41.4 % (39.0-52.0); Hemoglobin 14.1 g/dL (13.0-18.0); Mean Corp Hgb Conc. 34.1 g/dL (33.0-37.0); Mean Corpuscular Hgb 30.3 pg (27.0-31.0); Mean Corpuscular Volume 88.8 fL (80.0-94.0); Nucleated Red Blood Cells % 0 % (-); Platelet Count 237 10^3/uL (130-400); Red Blood Cell Count 4.66 10^6/uL (4.70-6.10); Red Cell Dist. Width 13.4 % (11.5-14.5); White Blood Cell Count 6.5 10^3/uL (4.8-10.8)
[2024-05-25 10:02] LABS: ALT (SGPT) 40 U/L (0-50); AST (SGOT) 33 U/L (17-59); Albumin 4.6 g/dl (3.5-5.0); Alkaline Phosphatase 75 U/L (38-126); Blood Urea Nitrogen 14 mg/dl (9-20); Calcium 9.1 mg/dl (8.4-10.2); Carbon Dioxide 27 mmol/L (22-30); Chloride 98 mmol/L (98-107); Glucose 104 mg/dl (70-99); HDL Cholesterol 53 mg/dl; LDL Cholesterol, Calculated 57 mg/dl; Potassium 4.3 mmol/L (3.5-5.1); Sodium 135 mmol/L (135-145); Total Bilirubin 0.8 mg/dl (0.2-1.3); Total Cholesterol 124 mg/dl (50-199); Total Protein 7.3 g/dl (6.3-8.2); Triglyceride 71 mg/dl (10-149); Very Low Density Lipoprotein 14 mg/dl (0-30); eGFR > 60.00
[2024-05-25 10:24] LABS: PSA, Total - Screen 1.19 ng/ml (0.0-4.0); TSH 1.17 uIU/ml (0.47-4.68)
[2024-05-25 10:43] LABS: Vitamin B12 619 pg/ml (239-931)
== END ==
LOC: HWLAB 07:45
PROVIDERS: ATTENDING PHYSICIAN Thoracic Surgery (Cardiothoracic Vascular Surgery); FAMILY PHYSICIAN Family Medicine
DX: K29.00 Acute gastritis without bleeding (principal); Z12.5 Encounter for screening for malignant neoplasm of prostate; D64.9 Anemia, unspecified; E78.2 Mixed hyperlipidemia; I35.0 Nonrheumatic aortic (valve) stenosis; K21.9 Gastro-esophageal reflux disease without esophagitis; D62 Acute posthemorrhagic anemia
CPT/HCPCS: 36415; 80053; 80061; 82607; 84443; 85025; G0103

== ENCOUNTER → 2024-06-22 08:11 | Outpatient (REF) | payer MEDICARE, OTHER, SELFPAY | LOC: HWRCS 08:11 | PROVIDERS: ATTENDING PHYSICIAN Student in an Organized Health Care Education/Training Program; FAMILY PHYSICIAN Family Medicine | DX: Z95.1 Presence of aortocoronary bypass graft (principal); Z95.2 Presence of prosthetic heart valve | CPT/HCPCS: 93306 ==